=== PATIENT | female | born 1965 | race Caucasian/White ===

== ENCOUNTER 2016-11-22 17:45 | Inpatient (IN) ==
[2016-11-22] MEDS ORDERED: methylPREDNISolone 125 MG/2 ML VIAL IVP ONE (18:27)
[2016-11-22] MEDS ORDERED: Ipratropium/Albuterol Neb 3 ML IH ONE (18:27)
[2016-11-22 18:37] LABS: Basophils % 0.4 %; Eosinophils # 0.3 K/mcL (0.0-0.6); Eosinophils % 2.6 %; Hematocrit 34.4 % (35.3-44.9); Hemoglobin 10.9 g/dL (11.5-15.4); Immature Granulocytes % 0.5 % (0-4); Lymphocytes # 2.9 K/mcL (0.6-4.6); Lymphocytes % 27.1 %; Mean Corpuscular HGB Conc 31.7 g/dL (31.6-35.5); Mean Corpuscular Hemoglobin 29.8 pg (28.0-33.3); Mean Platelet Volume 8.8 fL (9.4-12.4); Monocytes # 0.6 K/mcL (0.0-1.3); Monocytes % 5.4 %; Neutrophils # 6.9 K/mcL (1.6-8.9); Platelet Count 391 K/mcL (140-400); Red Blood Count 3.66 M/mcL (3.82-4.97); Red Cell Distribution Width 15.4 % (11.5-14.5)
[2016-11-22 18:50] LABS: BUN/Creatinine Ratio 10 (6-26); Blood Urea Nitrogen 7 mg/dL (7-20); Calcium 8.2 mg/dL (8.6-10.8); Carbon Dioxide 20 mEq/L (19-29); Chloride 113 mEq/L (98-109); Glucose 93 mg/dL (70-99); Osmolality,Calculated 292 (280-300); Potassium 3.9 mEq/L (3.5-4.5); Sodium 142 mEq/L (136-145); eGFR For African Americans > 60 (> 60); eGFR For Non-African Americans > 60 (> 60)
[2016-11-22] MEDS ORDERED: 0.9 % Sodium Chloride 500 ML IVC ONE (18:54)
--- NOTE | 2016-11-22 18:57 | Emergency Department Note ---
Disposition Clinical Impression: Pleural effusion Dyspnea Qualifiers: Dyspnea type: dyspnea on exertion Qualified Code(s): R06.09 - Other forms of dyspnea Pneumonia Qualifiers: Pneumonia type: due to unspecified organism Laterality: bilateral Lung location : unspecified part of lung Qualified Code(s): J18.9 - Pneumonia, unspecified organism Disposition: Admitted As Inpatient Condition: Good Referrals: Bhanu Moody DO [Primary Care Provider] - Forms: ED Satisfaction Letter SOB HPI - General Chief Complaint: ED Shortness of Breath/Dyspnea Stated Complaint: SOB Time Seen by Provider: 11/22/16 17:59 Source: patient, family Mode of arrival: ambulatory Limitations: no limitations Nursing Notes Reviewed: Yes Vital Signs Reviewed: Yes - History of Present Illness 51-year-old female presents to the ER with a chief complaint of shortness of breath for 1 month duration. Pt Subjective Complaint: shortness of breath Onset (ago): month(s) (1) Context: recent illness (Has had shortness of breath for the last month.) Severity: severe Consistency/Duration: intermittent Improves with: rest Worsens with: lying flat, exertion Known history of: other (Has smoked one pack per day for 20 years. No formal diagnosis of COPD or asthma.) Associated symptoms: Reports: chest pain (Intermittent), cough, wheezing, orthopnea. Denies: fever, sputum production, lower extremity pain, nausea/ vomiting Treatment prior to arrival: bronchodilator Cough present: Yes Cough Description: Involuntary Cough Frequency: Intermittent Sputum production: No Sputum Amount: None - Related Data Home oxygen amount: none Previous Rx's Medication Instructions Recorded Cyclobenzaprine [Flexeril] 10 mg PO TID PRN #15 tablet 09/15/15 Nabumetone [Relafen] 500 mg PO BID 10 Days 09/15/15 Allergies Allergy/AdvReac Type Severity Reaction Status Date / Time acetaminophen [From Vicodin] AdvReac Hives Verified 09/15/15 15:46 codeine AdvReac Hives Verified 09/15/15 15:46 hydrocodone [From Vicodin] AdvReac Hives Verified 09/15/15 15:46 morphine AdvReac Hives Verified 09/15/15 15:46 All systems ED: reviewed and negative except as stated. Constitutional: Denies: fever Cardiovascular: Reports: chest pain (Intermittently), dyspnea on exertion Respiratory: Reports: cough, dyspnea, wheezes Gastrointestinal: Denies: abdominal pain, nausea, vomiting Past Medical History - Past Medical History Attestation: Yes The following information was validated with the patient. Source: patient Medical history: Reports: no medical history Surgical history: Reports: non-contributory Psychiatric history: Reports: anxiety, depression - Social History Smoking Status: Current every day smoker Smokeless Tobacco Status: No Alcohol use: Reports: none, unknown Drug use: Reports: none Physical Exam - General Limitations: no limitations General appearance: alert, anxious - Head Head exam: atraumatic, normocephalic, normal inspection - Eye Eye exam: Present: normal appearance - ENT ENT exam: normal exam - Neck Neck exam: Present: normal inspection - Chest Chest inspection: Present: normal inspection, symmetric chest wall rise - Respiratory Respiratory exam: Present: normal lung sounds bilaterally. Absent: respiratory distress, wheezes, accessory muscle use - Cardiovascular Cardiovascular exam: Present: regular rate, normal rhythm, normal heart sounds - Abdominal Exam Abdominal exam: Present: soft, Non-Tender. Absent: guarding, rigidity - Extremities Exam Extremities exam: Present: normal inspection - Expanded Lower Extremity Exam Hip/Pelvis exam: Present: normal inspection Upper leg exam: Present: normal inspection Knee exam: Present: normal inspection Lower leg exam: Present: normal inspection Ankle exam: Present: normal inspection Foot/toe exam: Present: normal inspection - Neurological Exam Neurological exam: Present: alert - Psychiatric Psychiatric exam: Present: normal affect, normal mood, anxious - Skin Skin exam: Present: warm, dry, intact, normal color Course Course Narrative: 51-year-old female history of hyperlipidemia, bipolar who presents to the ER with a chief complaint of shortness of breath. Patient reports that she has been short of breath for the last 1 month. She reports that she was seen at another facility roughly 2 weeks ago where they did a chest x-ray EKG and labs and she was sent home without any medications. She reports continued shortness of breath since. She reports intermittent chest pain as well but is unable to describe it characteristics. She denies fevers during this. She denies sick contacts. No recent antibiotic use. She has an inhaler at home that her primary care provider prescribed a few months ago. She reports that she has smoked a pack per day for 20 years and quit today. She denies a history of ID, DVT or PE. No other complaints. Plan for this patient is EKG, chest x-ray as well as basic labs including troponin and d-dimer. She does not perc out due to her age. We will give her DuoNeb nebs and Solu-Medrol here as well. - Reevaluation(s) Reevaluation #1: Patient's d-dimer elevated to over 1500. We will order a CTA of the chest. Reevaluation #2: Discussed results of CTA with the patient. Appearance of bilateral pleural effusions with possible superimposed pneumonia. We will give her a dose of Lasix as well as antibiotics and admit her to the hospital for further management. Vital Signs Temperature 97.8 F 11/22/16 17:46 Pulse Rate 68 11/22/16 17:46 Respiratory Rate 18 11/22/16 17:46 Blood Pressure 126/74 11/22/16 17:46 O2 Sat by Pulse Oximetry 96 11/22/16 17:46 Temperature 97.8 F 11/22/16 17:46 Pulse Rate 75 11/22/16 21:06 Respiratory Rate 20 11/22/16 21:06 Blood Pressure 121/76 11/22/16 21:06 O2 Sat by Pulse Oximetry 95 11/22/16 21:06 Oxygen Delivery Oxygen Delivery Nasal Cannula Shortness of Breath/Dyspnea - MDM Narrative Medical decision making narrative: 51-year-old female presents to the ER due to dyspnea for 1 month duration. She is currently on 3 L nasal cannula here with O2 sats around 94%. Her EKG shows diffuse T-wave flattening. Chest x-ray was concerning for interstitial edema. She had an elevated d-dimer so we had a CT of the chest which shows bilateral pleural effusions with the possibility of a superimposed pneumonia. Given her new oxygen requirement and her effusions with possible pneumonia we will give her a dose of Lasix as well as Rocephin and Zithromax for coverage. Blood cultures will be obtained and the patient will be admitted to the hospital for further management. - Lab Data Lab results reviewed: Yes I reviewed the patient's lab results. Result diagrams: 11/22/16 18:22 11/22/16 18:22 Lab Results 11/22/16 11/22/16 11/22/16 Range/Units 18:22 18:22 18:22 WBC 10.7 (4.3-11.1) K/mcL RBC 3.66 L (3.82-4.97) M/mcL Hgb 10.9 L (11.5-15.4) g/dL Hct 34.4 L (35.3-44.9) % MCV 94.0 (83.0-100.0) fL MCH 29.8 (28.0-33.3) pg MCHC 31.7 (31.6-35.5) g/dL RDW 15.4 H (11.5-14.5) % Plt Count 391 (140-400) K/mcL MPV 8.8 L (9.4-12.4) fL Immature Gran % 0.5 (0-4) % Seg Neutrophils % 64.0 % Lymphocytes % 27.1 % Monocytes % 5.4 % Eosinophils % 2.6 % Basophils % 0.4 % Neutrophils # 6.9 (1.6-8.9) K/mcL Lymphocytes # 2.9 (0.6-4.6) K/mcL Monocytes # 0.6 (0.0-1.3) K/mcL Eosinophils # 0.3 (0.0-0.6) K/mcL Basophils # 0.0 (0.0-0.2) K/mcL D-Dimer (0-500) ng/mLFEU Sodium 142 (136-145) mEq/L Potassium 3.9 (3.5-4.5) mEq/L Chloride 113 H (98-109) mEq/L Carbon Dioxide 20 (19-29) mEq/L BUN 7 (7-20) mg/dL Creatinine 0.73 (0.57-1.11) mg/dL Est GFR ( Amer) > 60 (> 60) Est GFR (Non-Af Amer) > 60 (> 60) BUN/Creatinine Ratio 10 (6-26) Glucose 93 (70-99) mg/dL Calculated Osmolality 292 (280-300) Calcium 8.2 L (8.6-10.8) mg/dL Troponin I 0.01 (0-0.03) ng/mL B-Natriuretic Peptide (0-100) pg/mL 11/22/16 11/22/16 Range/Units 18:22 18:22 WBC (4.3-11.1) K/mcL RBC (3.82-4.97) M/mcL Hgb (11.5-15.4) g/dL Hct (35.3-44.9) % MCV (83.0-100.0) fL MCH (28.0-33.3) pg MCHC (31.6-35.5) g/dL RDW (11.5-14.5) % Plt Count (140-400) K/mcL MPV (9.4-12.4) fL Immature Gran % (0-4) % Seg Neutrophils % % Lymphocytes % % Monocytes % % Eosinophils % % Basophils % % Neutrophils # (1.6-8.9) K/mcL Lymphocytes # (0.6-4.6) K/mcL Monocytes # (0.0-1.3) K/mcL Eosinophils # (0.0-0.6) K/mcL Basophils # (0.0-0.2) K/mcL D-Dimer 1577 H (0-500) ng/mLFEU Sodium (136-145) mEq/L Potassium (3.5-4.5) mEq/L Chloride (98-109) mEq/L Carbon Dioxide (19-29) mEq/L BUN (7-20) mg/dL Creatinine (0.57-1.11) mg/dL Est GFR ( Amer) (> 60) Est GFR (Non-Af Amer) (> 60) BUN/Creatinine Ratio (6-26) Glucose (70-99) mg/dL Calculated Osmolality (280-300) Calcium (8.6-10.8) mg/dL Troponin I (0-0.03) ng/mL B-Natriuretic Peptide 1708 H (0-100) pg/mL - Radiology Data Radiology results reviewed: Yes I reviewed the patient's radiology results. Chest X-Ray 11/22/16 18:12 IMPRESSION: Diffuse interstitial changes likely related to interstitial pulmonary edema and CHF. Underlying pneumonia is not excluded. D/ /22/2016 19:02:48 Thierry Bernabe MD / lana Interpreting Provider: Thierry Bernabe MD Chest CTA 11/22/16 18:54 IMPRESSION: 1. No evidence of pulmonary embolic disease. 2. Moderate bilateral pleural effusions with interlobular septal thickening and patchy infiltrates throughout the lungs likely reflecting interstitial pulmonary edema and related to CHF. Superimposed infectious process cannot be excluded. 3. Multiple small mediastinal and right hilar nodes. Recommend follow-up imaging in 3-6 months following treatment of the patient's acute illness. D/ / 11/22/2016 20:14:21 Thierry Bernabe MD / lana Interpreting Provider: Thierry Bernabe MD - EKG Data EKG attestation: Yes I reviewed and interpreted this EKG. EKG results narrative: EKG with sinus rhythm with rate of 68 bpm. Normal axis. ND interval 105 QRS duration 118 QTc 448 there is diffuse T-wave flattening in leads 1, lead 2, aVL , V4 through V6. No ST elevations or depressions. EKG shows normal: Reports: sinus rhythm, axis, intervals, QRS complexes Rate: Reports: normal Rhythm: Reports: NSR [place]/QRS: Reports: normal When compared to previous EKG there are: previous EKG unavailable Interpretation: Reports: nonspecific ST-T wave changes S.B.Garcia - Tegan Situation: Demographics, MOA Background: Presenting Complaint, Relevant PMH, Meds, & Allergies Assessment: Vital Signs, Course and respsone to treatment, Exam Concerns, Patient/Family Expectation, Pertinant Lab Results, Outstanding Labs Recommendation: Barrier(s) to disposition, Recommendation based on pending studies, treatments, or consults S.B.AKristal Report Given to: Dr. Oscar Javed Repor Time: 21:08
[2016-11-22] MEDS ORDERED: Ketorolac 30 MG/ML VIAL IVP ONE (19:54)
[2016-11-22] MEDS ORDERED: Furosemide 40 MG/4 ML VIAL IVP ONE (20:19)
[2016-11-22] MEDS ORDERED: Azithromycin 500 MG in D5% in Water 250 ML IVPB ONE (20:19)
--- NOTE | 2016-11-22 20:22 | Emergency Department Note ---
Disposition Clinical Impression: Dyspnea, Pleural effusion, Pneumonia Disposition: Admitted As Inpatient Condition: Good General Adult HPI - General Chief complaint: ED Shortness of Breath/Dyspnea Stated complaint: SOB Time Seen by Provider: 11/22/16 17:59 Source: patient, family Mode of arrival: ambulatory Limitations: no limitations - History of Present Illness Pain Scale: 0 - Related Data Home Medications Medication Instructions Recorded Confirmed Carisoprodol [Soma] 350 mg PO BID 11/22/16 11/22/16 ClonazePAM [Klonopin] 1 mg PO TID 11/22/16 11/22/16 FLUoxetine HCl [Prozac] 40 mg PO BID 11/22/16 11/22/16 Pravastatin Sodium 10 mg PO DAILY 11/22/16 11/22/16 Quetiapine Fumarate [SEROquel] 300 mg PO BID 11/22/16 11/22/16 Trazodone HCl 100 mg PO HS 11/22/16 11/22/16 Allergies Allergy/AdvReac Type Severity Reaction Status Date / Time acetaminophen [From Vicodin] AdvReac Hives Verified 09/15/15 15:46 codeine AdvReac Hives Verified 09/15/15 15:46 hydrocodone [From Vicodin] AdvReac Hives Verified 09/15/15 15:46 morphine AdvReac Hives Verified 09/15/15 15:46 Constitutional: Denies: fever Cardiovascular: Reports: chest pain (Intermittently), dyspnea on exertion Respiratory: Reports: cough, dyspnea, wheezes Gastrointestinal: Denies: abdominal pain, nausea, vomiting Past Medical History - Past Medical History Medical history: Reports: no medical history Surgical history: Reports: non-contributory Psychiatric history: Reports: anxiety, depression - Social History Smoking Status: Current every day smoker Smokeless Tobacco Status: No Alcohol use: Reports: none, unknown Drug use: Reports: none Physical Exam - General Limitations: no limitations General appearance: alert, anxious Course - Reevaluation(s) Reevaluation #1: I saw the patient with the resident, Dr. Marks. Patient presents with a complaint of shortness of breath. She has had a little bit of cough. She describes orthopnea as well. This is been building up over the past month. On examination she is afebrile. Her vitals are good. She has rales in bilateral lung naidu posteriorly. Chest x-ray questions pulmonary edema versus atypical pneumonia. We did a CT of the chest with contrast to assess for PE and to further delineate the lung issues. On the CT we see bilateral pleural effusions and pulmonary vascular congestion CONSISTENT with congestive heart failure although the radiologist states he cannot rule out an underlying atypical pneumonia. There are no signs of right-sided heart failure on exam. We will treat the patient with some Lasix and we will start her on antibiotics as well. She will need to be admitted because of the severity of her symptoms and her oxygen requirement. Time: 20:22 Vital Signs Temperature 97.8 F 11/22/16 17:46 Pulse Rate 68 11/22/16 17:46 Respiratory Rate 18 11/22/16 17:46 Blood Pressure 126/74 11/22/16 17:46 O2 Sat by Pulse Oximetry 96 11/22/16 17:46 Temperature 97.6 F 11/22/16 22:17 Pulse Rate 72 11/22/16 22:17 Respiratory Rate 19 11/22/16 22:17 Blood Pressure 118/76 11/22/16 22:17 O2 Sat by Pulse Oximetry 94 L 11/22/16 22:17 Oxygen Delivery Oxygen Delivery Nasal Cannula Medical Decision Making - Lab Data Result diagrams: 11/22/16 18:22 11/22/16 18:22 Lab Results 11/22/16 11/22/16 11/22/16 Range/Units 18:22 18:22 18:22 WBC 10.7 (4.3-11.1) K/mcL RBC 3.66 L (3.82-4.97) M/mcL Hgb 10.9 L (11.5-15.4) g/dL Hct 34.4 L (35.3-44.9) % MCV 94.0 (83.0-100.0) fL MCH 29.8 (28.0-33.3) pg MCHC 31.7 (31.6-35.5) g/dL RDW 15.4 H (11.5-14.5) % Plt Count 391 (140-400) K/mcL MPV 8.8 L (9.4-12.4) fL Immature Gran % 0.5 (0-4) % Seg Neutrophils % 64.0 % Lymphocytes % 27.1 % Monocytes % 5.4 % Eosinophils % 2.6 % Basophils % 0.4 % Neutrophils # 6.9 (1.6-8.9) K/mcL Lymphocytes # 2.9 (0.6-4.6) K/mcL Monocytes # 0.6 (0.0-1.3) K/mcL Eosinophils # 0.3 (0.0-0.6) K/mcL Basophils # 0.0 (0.0-0.2) K/mcL D-Dimer (0-500) ng/mLFEU Sodium 142 (136-145) mEq/L Potassium 3.9 (3.5-4.5) mEq/L Chloride 113 H (98-109) mEq/L Carbon Dioxide 20 (19-29) mEq/L BUN 7 (7-20) mg/dL Creatinine 0.73 (0.57-1.11) mg/dL Est GFR ( Amer) > 60 (> 60) Est GFR (Non-Af Amer) > 60 (> 60) BUN/Creatinine Ratio 10 (6-26) Glucose 93 (70-99) mg/dL Calculated Osmolality 292 (280-300) Calcium 8.2 L (8.6-10.8) mg/dL Troponin I 0.01 (0-0.03) ng/mL B-Natriuretic Peptide (0-100) pg/mL 11/22/16 11/22/16 Range/Units 18:22 18:22 WBC (4.3-11.1) K/mcL RBC (3.82-4.97) M/mcL Hgb (11.5-15.4) g/dL Hct (35.3-44.9) % MCV (83.0-100.0) fL MCH (28.0-33.3) pg MCHC (31.6-35.5) g/dL RDW (11.5-14.5) % Plt Count (140-400) K/mcL MPV (9.4-12.4) fL Immature Gran % (0-4) % Seg Neutrophils % % Lymphocytes % % Monocytes % % Eosinophils % % Basophils % % Neutrophils # (1.6-8.9) K/mcL Lymphocytes # (0.6-4.6) K/mcL Monocytes # (0.0-1.3) K/mcL Eosinophils # (0.0-0.6) K/mcL Basophils # (0.0-0.2) K/mcL D-Dimer 1577 H (0-500) ng/mLFEU Sodium (136-145) mEq/L Potassium (3.5-4.5) mEq/L Chloride (98-109) mEq/L Carbon Dioxide (19-29) mEq/L BUN (7-20) mg/dL Creatinine (0.57-1.11) mg/dL Est GFR ( Amer) (> 60) Est GFR (Non-Af Amer) (> 60) BUN/Creatinine Ratio (6-26) Glucose (70-99) mg/dL Calculated Osmolality (280-300) Calcium (8.6-10.8) mg/dL Troponin I (0-0.03) ng/mL B-Natriuretic Peptide 1708 H (0-100) pg/mL Attestation Statement - Attestation Attestation: I, Dr. Guzmán, examined this patient [id number] and my medical decision- making was reviewed with Dr. Marks, Resident Physician. I agree with the documented findings, disposition and treatment plan as described except to the extent set forth below. Please see my progress notes for details.
[2016-11-22] MEDS ORDERED: Naloxone 0.4 MG/ML INJ IVP PRN (23:08)
[2016-11-22] MEDS ORDERED: Albuterol 2.5 MG/3 ML NEBULIZER IH PRN (23:34)
[2016-11-22] MEDS ORDERED: Ibuprofen 400 MG TABLET PO PRN (23:40)
--- NOTE | 2016-11-22 23:40 | Internal Med History&Physical ---
<Sade Deleon - Last Filed: 11/22/16 23:57> Date of Encounter: 11/22/16 Time of Encounter: 22:00 Assessment and Plan (1) Acute respiratory failure with hypoxia Current visit: Yes Status: Acute 1 patient presented with SPO2 91% respiratory distress. She was given supplemental oxygen doing that Lasix which did improve her respiratory status. We will continue with oxygen titrate to maintain SPO2. Greater than 92% 2 suspect this is related to CHF/pleural effusion we will continue with Lasix, obtain cardiac echo-consult cardiology (2) CHF (congestive heart failure) Current visit: Yes Status: Acute 1 she has no past history of CHF/heart disease. will obtain cardiac echo 2. Consult Cardiology 3 continue with IV Lasix 4 monitor intake and output 5 daily weight 6 low sodium diet 7trend troponin 8 continuos cardiac monitoring Qualifiers: Congestive heart failure type: unspecified congestive heart failure type Congestive heart failure chronicity: acute Qualified Code(s): I50.9 - Heart failure, unspecified (3) Bipolar 1 disorder Current visit: Yes Status: Acute 1 she has history of bipolar disorder we will continue with home medications (4) Tobacco abuse Current visit: Yes Status: Acute 1 encouraged the patient to stop smoking nicotine patch as needed (5) DVT prophylaxis Current visit: Yes Status: Acute 1 Lovenox (6) Pleural effusion Current visit: Yes Status: Acute Internal Medicine - H&P: HPI Chief complaint: SOB Admitted From: Emergency Dept Plans for Post Hospital Care: Home History of present illness: Ms. Cevallos is a 51 year old female with past medical history of bipolar disorder tobacco abuse. According to the patient she has been experiencing shortness of breath on exertion for approximately a month however over the past few days her shortness of breath has worsened. She denies any fevers chills nausea vomiting diarrhea abdominal pain. She denies any sick contacts or recent travel. She did have all of her teeth pulled on 11/14/2016 due to gum disease. Today the patient did awake short of breath with some chest pressure during inspiration. She presented to the ER for evaluation. According to ER records patient did present hypoxic with SPO2 of 91% on room air. Patient was placed on oxygen, O2 saturation did improve lab work revealed BNP of 1708 d-dimer 1577. Chest x-ray was consistent with pulmonary congestion versus atypical pneumonia. CTA chest was completed to rule out PE which revealed bilateral pleural effusion pulmonary vascular congestion consistent with congestive heart failure however again cannot rule out underlying atypical pneumonia. EKG did show some ST depression. 4 cultures were obtained patient was given IV Zithromax and Rocephin as well as Lasix. She is admitted for further workup and evaluation. At present time patient does not appear to be in any respiratory distress and denies any chest pain. She is alert and follows simple commands however during conversation patient begins to cry/shake see that she is nervous and requesting her night medication. Presently her vital signs are stable I reviewed the case with who agrees with plan Past Med Surg Social Fam HX - Past Medical History Medical history: no medical history Psychiatric history: anxiety, depression - Past Surgical History Surgical History: non-contributory - Social History Smoking Status: Current every day smoker Smokeless Tobacco Status: No Alcohol use: none, unknown Drug use: none - Family History Mother Living Status: Still Living Hx Family Cardiac Disorders: No Hx Family Respiratory Disorders: No Hx Family Cancer: No Hx Family GI Disorders: No Hx Family Genitourinary Disorders: No Hx Family Endocrine Disorder: No Hx Family Musculoskeletal Disorders: No Hx Family Neuromuscular Disorders: No Hx Family Neurologic Disorders: No Hx Family HEENT Disorders: No Hx Family Autoimmune Disorders: No Hx Family Reproductive Disorders: No Hx Family Psychosocial Disorders: Yes (anxiety, panic attacks) Hx Family Medical Disorders: No Father Living Status: Hx Family Cardiac Disorders: Yes Internal Medicine - H&P: Meds Carisoprodol [Soma] 350 mg PO BID 11/22/16 [History] ClonazePAM [Klonopin] 1 mg PO TID 11/22/16 [History] FLUoxetine HCl [Prozac] 40 mg PO BID 11/22/16 [History] Pravastatin Sodium 10 mg PO DAILY 11/22/16 [History] Quetiapine Fumarate [SEROquel] 300 mg PO BID 11/22/16 [History] Trazodone HCl 100 mg PO HS 11/22/16 [History] Allergies acetaminophen [From Vicodin] Adverse Reaction (Verified 09/15/15 15:46) Hives codeine Adverse Reaction (Verified 09/15/15 15:46) Hives hydrocodone [From Vicodin] Adverse Reaction (Verified 09/15/15 15:46) Hives morphine Adverse Reaction (Verified 09/15/15 15:46) Hives All Systems PM: A 10-system review of systems was performed and is negative for pertinent findings except as documented above in the HPI. - Constitutional Constitutional: no chills, no fever(s), no night sweats - EENT Eyes: no change in vision, no discharge, no pain, no photophobia Nose, mouth and throat: mouth pain - Cardiovascular Cardiovascular ROS IM: chest pain, dyspnea on exertion - Respiratory Respiratory: dyspnea on exertion, pain on inspiration - Gastrointestinal Gastrointestinal: no abdominal pain, no diarrhea, no hematemesis, no hematochezia, no melena, no nausea, no vomiting - Genitourinary Genitourinary: no change in urinary stream, no dysuria, no flank pain, no hematuria - Musculoskeletal Musculoskeletal ROS IM: no numbness, no tingling - Neurological Neurological ROS: no confusion, no convulsions, no focal weakness, no numbness, no tingling, no tremor(s) - Constitutional Vitals: Temp Pulse Resp BP Pulse Ox 97.6 F 72 19 118/76 94 L 11/22/16 22:17 11/22/16 22:17 11/22/16 22:17 11/22/16 22:17 11/22/16 22:17 General appearance: Present: answers questions appropriately Exam: Appears emotionally distraught - Head Head exam: Present: atraumatic, normocephalic - Eye Eye exam: Present: PERRL, conjuntiva pink, sclera anicteric Pupils: Present: PERRL - ENT ENT exam: Present: mucous membranes moist Additional comments: edentulous - Neck Neck exam general surgery: Present: supple, trachea midline. Absent: lymphadenopathy - Respiratory Respiratory exam: Present: rales. Absent: accessory muscle use, rhonchi, wheezes - Cardiovascular Cardiovascular exam: Present: RRR, +S1, +S2. Absent: diastolic murmur, gallop, rubs, systolic murmur - GI/Abdominal GI/Abdominal exam: Present: normal bowel sounds, soft, no peritoneal signs. Absent: distended, tenderness - Extremities Exam Extremities exam: Present: warm, radial pulses palpable and symetrical. Absent : calf tenderness, cyanotic, pedal edema - Neurological Exam Neurological exam: Present: CN II-XII intact, oriented X3, no focal deficits. Absent: pronater drift, facial droop, speech deficit - Skin Skin exam: Present: dry, intact Internal Med - H&P Results - Labs CBC & Chem 7: 11/22/16 18:22 11/22/16 18:22 - EKG Data EKG shows normal: sinus rhythm - EKG Data EKG comments: 11/22/16 23:54 I reviewed the EKG with some ST depression in lateral leads 11/22/16 23:54 - Diagnostic Studies Chest x-ray Additional comments: Per radiology read diffuse interstitial changes related to interstitial pulmonary edema and CHF or pneumonia cannot be excluded CT scan - chest Additional comments: Per radiology read no evidence of pulmonary emboli disease. Moderate bilateral pleural effusions with intralobular septal thickening and patchy infiltrates once likely reflecting interstitial pulmonary edema and related to CHF. Superimposed infectious process cannot be excluded. Multiple small mediastinal and right hilar lymph nodes. Recommend follow-up imaging in 3-6 months following treatment the patient's acute illness. <Cesar Moore - Last Filed: 11/23/16 03:19> Date of Encounter: 11/22/16 Internal Medicine - H&P: HPI History of present illness: Ms. Cevallos is a 51 year old female All Systems PM: A 10-system review of systems was performed and is negative for pertinent findings except as documented above in the HPI. - Constitutional Vitals: Temp Pulse Resp BP Pulse Ox 97.6 F 72 19 118/76 94 L 11/22/16 22:17 11/22/16 22:17 11/22/16 22:17 11/22/16 22:17 11/22/16 22:17 Internal Med - H&P Results - Labs CBC & Chem 7: 11/23/16 00:28 11/22/16 18:22 Labs: Short CBC 11/23/16 Range/Units 00:28 WBC 9.1 (4.3-11.1) K/mcL Hgb 10.2 L (11.5-15.4) g/dL Hct 32.7 L (35.3-44.9) % Plt Count 415 H (140-400) K/mcL Neutrophils # 8.3 (1.6-8.9) K/mcL Cardiac Enzymes 11/23/16 Range/Units 00:28 Troponin I 0.01 (0-0.03) ng/mL - Attending Attestation I examined this patient and my medical decision-making was reviewed with the SERVICING MANAGER/PA/Advanced Practice Nurse/Resident Physician. I agree with the documented findings, disposition and treatment plan as described except to the extent set forth below. 51-year-old female with the history of bipolar disorder presents with one-month history of progressive shortness of breath, orthopnea and paroxysmal nocturnal dyspnea. Short of breath got worse in the last few days. Denies significant expectoration, chest pain, fever, chills. Recent h/o tooth extraction. Denies h/ o heart murmur or rheumatic fever as child. O/E: Anxious. Lungs: few basal crackles. EKG: sinus rhythm. CXR / CTA chest: No pulmonary embolism. Moderate bilateral pleural effusions with interlobular septal thickening and patchy infiltrates likely reflecting interstitial pulmonary edema and related to CHF. Superimposed infectious process cannot be excluded. BNP: 1708; D-Dimer: 1577. A/P: - New onset CHF: Echocardiogram to assess LV function and valvular lesions. IV Lasix. I/O; daily weight; low sodium diet; cardiology consultation for w/u. Clinically unlikely pneumonia will hold antibiotics.
[2016-11-23] MEDS: Nicotine 14 MG PATCH.TD24 TD SCH ×2 (00:05→08:17)
[2016-11-23] MEDS: FLUoxetine 20 MG CAPSULE PO SCH ×3 (00:05→20:20)
[2016-11-23] MEDS: traZODone 50 MG TABLET PO SCH ×2 (00:06→20:20)
[2016-11-23] MEDS: clonazePAM 1 MG TABLET PO SCH ×4 (00:06→20:20)
[2016-11-23 01:02] LABS: Hematocrit 32.7 % (35.3-44.9); Hemoglobin 10.2 g/dL (11.5-15.4); Immature Platelets 1.3 % (1.1-6.1); Mean Corpuscular HGB Conc 31.2 g/dL (31.6-35.5); Mean Corpuscular Hemoglobin 29.6 pg (28.0-33.3); Mean Corpuscular Volume 94.8 fL (83.0-100.0); Mean Platelet Volume 8.8 fL (9.4-12.4); Platelet Count 415 K/mcL (140-400); Red Blood Count 3.45 M/mcL (3.82-4.97); Red Cell Distribution Width 15.4 % (11.5-14.5)
[2016-11-23 01:36] LABS: Lymphocytes # 0.7 K/mcL (0.6-4.6); Monocytes # 0.1 K/mcL (0.0-1.3); Neutrophils # 8.3 K/mcL (1.6-8.9)
[2016-11-23 01:37] LABS: Polychromasia 1+ (Not Present)
[2016-11-23 01:38] LABS: Reactive Lymphocytes Present (Not Present)
[2016-11-23 03:36] LABS: BUN/Creatinine Ratio 8 (6-26); Blood Urea Nitrogen 6 mg/dL (7-20); Carbon Dioxide 18 mEq/L (19-29); Chloride 109 mEq/L (98-109); Glucose 277 mg/dL (70-99); Magnesium 1.5 mg/dL (1.6-2.6); Osmolality,Calculated 296 (280-300); Potassium 3.6 mEq/L (3.5-4.5); Sodium 139 mEq/L (136-145); eGFR For African Americans > 60 (> 60); eGFR For Non-African Americans > 60 (> 60)
[2016-11-23] MEDS: *HR* Enoxaparin 40 MG/0.4 ML SYRINGE SQ SCH (06:15)
[2016-11-23] MEDS ORDERED: Magnesium Sulfate 1 GM in D5% in Water 100 ML IVPB ONE (07:25)
--- NOTE | 2016-11-23 08:42 | Cardiology Consult Note ---
<Sundeep Chavez - Last Filed: 11/23/16 11:08> Date of Encounter: 11/23/16 Time of Encounter: 08:41 Assessment and Plan (1) Acute respiratory failure with hypoxia Current Visit: Yes Status: Acute Pleural effusions noted on both CXR and CTA. SpO2 upon ED arrival 91%, in room patient O2 was 84% on no oxygen. No previous home O2 use. ECHO demonstrated mitral regurg KATHERINE tomorrow NPO midnight tonight Continue lasix and respiratory support Repeat troponin at 1200 for episode of chest pain EKG demonstrated possible Delta wave without signs of ischemia. (2) CHF (congestive heart failure) Current Visit: Yes Status: Acute Qualifiers: Congestive heart failure type: unspecified congestive heart failure type Congestive heart failure chronicity: acute Qualified Code(s): I50.9 - Heart failure, unspecified (3) Pleural effusion Current Visit: Yes Status: Acute Discussion w patient/family: The assessment and plan as outlined above was discussed with the patient and/or family members who expressed understanding and agreement. All questions were answered. Thank you for involving us in the care of your patient. Please call with any questions. History of Present Illness Consult date: 11/23/16 Requesting physician: Cesar Moore Consult reason: New onset CHF Chief complaint: Dyspnea History of present illness: Ms. Cevallos is a 51 year old female smoker with HLD with no previous diagnosed CAD , arrived to [facility] ED complaining of dyspnea that began roughly 1 month ago with an acute worsening over the last 2 days. She states that any movement will cause her to become short of breath. She denies any previous chest pain but states around 0830 she began complaining of retrosternal chest pressure. The patient's father first had an AK at age 47. At age 56 he went for a CABG and passed due to complications. She also felt very short of breath at that time after taking her O2 off. Her O2 saturation was 84%. She was placed backed on O2. Past Med Surg Social Fam HX - Past Medical History Attestation: Yes The following information was validated with the patient. Source: patient Medical history: no medical history Psychiatric history: anxiety, depression - Past Surgical History Surgical History: non-contributory - Social History Smoking Status: Current every day smoker Smokeless Tobacco Status: No Alcohol use: none, unknown Drug use: none - Family History Mother Living Status: Still Living Hx Family Cardiac Disorders: No Hx Family Respiratory Disorders: No Hx Family Cancer: No Hx Family GI Disorders: No Hx Family Genitourinary Disorders: No Hx Family Endocrine Disorder: No Hx Family Musculoskeletal Disorders: No Hx Family Neuromuscular Disorders: No Hx Family Neurologic Disorders: No Hx Family HEENT Disorders: No Hx Family Autoimmune Disorders: No Hx Family Reproductive Disorders: No Hx Family Psychosocial Disorders: Yes (anxiety, panic attacks) Hx Family Medical Disorders: No Father Living Status: Hx Family Cardiac Disorders: Yes (AK age 47, CABG age 56, passed due to complications of CABG) Medications and Allergies Carisoprodol [Soma] 350 mg PO BID 11/22/16 [History] ClonazePAM [Klonopin] 1 mg PO TID PRN 11/22/16 [History] FLUoxetine HCl [Prozac] 40 mg PO BID 11/22/16 [History] Pravastatin Sodium 20 mg PO DAILY 11/22/16 [History] Trazodone HCl 100 mg PO BID 11/22/16 [History] Acetaminophen/Butalbital/Caffe [Fioricet] 1 tab PO Q6HR PRN 11/23/16 [History] Albuterol Sulfate [Ventolin Hfa] 2 puff IH Q4H PRN 11/23/16 [History] Quetiapine Fumarate [Seroquel Xr] 300 mg PO DAILY 11/23/16 [History] Allergies acetaminophen [From Vicodin] Allergy (Verified 11/23/16 09:15) Hives codeine Allergy (Verified 11/23/16 09:15) Hives hydrocodone [From Vicodin] Allergy (Verified 11/23/16 09:15) Hives morphine Allergy (Verified 11/23/16 09:15) Hives All Systems Review: A 10-system review of systems was performed and is negative for pertinent findings except as documented above in the HPI. - Constitutional Constitutional: fatigue, weakness - Cardiovascular Cardiovascular: chest pain at rest, dyspnea at rest, dyspnea on exertion - Respiratory Respiratory: cough, dyspnea, wheezing Physical Examination Vital Signs, Last 4 Hours Temp Pulse Resp BP Pulse Ox 11/23/16 08:35 90 L 11/23/16 06:40 97.4 F L 54 16 108/71 91 L 11/23/16 04:42 97.4 F L 57 18 107/67 91 L General: Other (Mild respiratory distress) HEENT: Atraumatic, Normocephaly, Mucus Membranes Moist Neck: No JVD Cardiac: Reg Rate and Rhythm, Normal S1 and S2, No Murmur Lungs: Other (Diffuse wheezing and rhonchi, poor air movement) Neuro: Alert and responsive, No focal deficits noted Abdomen: Soft, Non-Tender Skin: No rashes noted on visualized skin Musculoskeletal: No Chest Wall Tenderness Extremities: No Clubbing, No Cyanosis, No Edema Results 11/23/16 00:28 11/23/16 00:28 Lab Results 11/23/16 11/23/16 11/23/16 00:28 00:28 00:28 WBC 9.1 Hgb 10.2 L Hct 32.7 L Plt Count 415 H Sodium 139 Potassium 3.6 Chloride 109 Carbon Dioxide 18 L BUN 6 L Creatinine 0.79 Glucose 277 H Calcium 8.0 L Magnesium 1.5 L Troponin I 0.01 11/23/16 05:31 WBC Hgb Hct Plt Count Sodium Potassium Chloride Carbon Dioxide BUN Creatinine Glucose Calcium Magnesium Troponin I 0.01 - Imaging and Cardiology Chest Xray: report reviewed Echo: pending - EKG Interpretation EKG results cardiology: personally reviewed, sinus rhythm Consult Discharge Plan - Plan Referrals: Bhanu Moody DO [Primary Care Provider] - - Attending Attestation I examined this patient and my medical decision-making was reviewed with the Resident Physician. I agree with the documented findings, disposition and treatment plan as described except to the extent set forth below. <Amol Wylie G - Last Filed: 11/23/16 12:17> Date of Encounter: 11/23/16 Assessment and Plan Discussion w patient/family: The assessment and plan as outlined above was discussed with the patient and/or family members who expressed understanding and agreement. All questions were answered. Thank you for involving us in the care of your patient. Please call with any questions. History of Present Illness History of present illness: Ms. Cevallos is a 51 year old female All Systems Review: A 10-system review of systems was performed and is negative for pertinent findings except as documented above in the HPI. Physical Examination Vital Signs, Last 4 Hours Temp Pulse Resp BP Pulse Ox 11/23/16 11:00 97.6 F 66 16 130/87 94 L 11/23/16 08:35 90 L Results 11/23/16 00:28 11/23/16 00:28 Lab Results 11/23/16 11/23/16 11/23/16 00:28 00:28 00:28 WBC 9.1 Hgb 10.2 L Hct 32.7 L Plt Count 415 H Sodium 139 Potassium 3.6 Chloride 109 Carbon Dioxide 18 L BUN 6 L Creatinine 0.79 Glucose 277 H Calcium 8.0 L Magnesium 1.5 L Troponin I 0.01 11/23/16 05:31 WBC Hgb Hct Plt Count Sodium Potassium Chloride Carbon Dioxide BUN Creatinine Glucose Calcium Magnesium Troponin I 0.01 - Attending Attestation pt has symptoms of CHF , with PND, orthopnea, abdominal swelling VSS JVD: 9-20 cm Chest Clear CVS: RRR HSM at apex ? s3 Abdo: ? ascites ECHO reviewed by me shows severe MR with a central jet, LAE Grade III Diastolic Dysfunction severe TR mod PI no signs of ischemia plan; IV lasix KATHERINE in am to look at valve more closely possible R and L heart cath may need MV repair d/w pt and family Thanks
[2016-11-23] MEDS ORDERED: Furosemide 40 MG/4 ML VIAL IVP SCH (09:00)
--- NOTE | 2016-11-23 15:02 | ECHO - Doppler Report ---
Echocardiogram Name: Clemencia Cevallos Date of Study: 11/23/2016 Date: 1965 Ht: 67.0 in Medical Record#: [id number] Age: 51 Wt: 150.0 lb Gender: Female BSA: 1.79 Order #: [id number] Location: [facility] Room #: 2A11 Reading Physician: Madisyn Trammell DO [place] Custodian: Abraham Garland RN Ordering Physician: Sade Deleon CNP Primary Physician: Bhanu Moody DO Indications: Shortness of breath Impressions: LVEF 60%. Normal LV chamber size, wall thickness and function. Significantly elevated diastolic filling pressures. Mildly dilated RV with normal function. Mild aortic regurgitation. Severe mitral regurgitation with possible malcoaptation of the leaflets (see Findings below). Moderate-severe tricuspid regurgitation. Mild-moderate pulmonic regurgitation. Estimated RVSP was 73 mmHg. Severe pulmonary hypertension. The IVC is dilated. Recommend KATHERINE for further evaluation of the mitral valve. Left Ventricular Wall Motion: Rest Echo Findings All wall segments showed normal motion. Findings: Study Quality * Technically adequate exam. ECG Findings * Normal sinus rhythm. Left Ventricle * LVEF 60%. * Normal LV chamber size, wall thickness and function. * Significantly elevated diastolic filling pressures. Aortic Valve * Trileaflet aortic valve. * Normal aortic valve structure. * No aortic stenosis. * Mild aortic regurgitation. Mitral Valve * No mitral stenosis. * Severe mitral regurgitation. * Rheumatic appearing AMVL. * In the PSAX view, there appears to be malcoaptation of the lateral aspects of the leaflets (A1/P1, A3/P3). * Normal subvalvular apparatus. Tricuspid Valve * Normal tricuspid valve structure. * Moderate-severe tricuspid regurgitation. * Estimated RA pressure is 15 mmHg. * Estimated RVSP is 73 mmHg. * Severe pulmonary hypertension. Pulmonic Valve * Pulmonic valve is not well visualized. * No pulmonic stenosis. * Mild-moderate pulmonic regurgitation. Pulmonary Artery * Pulmonary artery not well visualized. Right Ventricle * Mildly dilated RV with normal function. Left Atrium * Severely dilated left atrium. Right Atrium * Moderately dilated right atrium. Interatrial Septum * Interatrial septum not well evaluated. IVC * The IVC is dilated. * < 50% respiratory change. Pericardium * There is no pericardial effusion present. Aorta * Normally sized aortic root. History Hypercholesteremia History of Smoking Years 25 Packs 1 Family History of CAD Measurements: BP: 108/ 71 2D Normal Values IVSd: .80 cm 0.6 - 1.0 cm LVIDd: 5.00 cm 3.7 - 5.6 cm LVPWd: .80 cm 0.6 - 1.1 cm LVIDs: 3.30 cm 1.5 - 3.6 cm LA: 5.00 cm 2.0 - 4.0cm %FS: 34.00 cm >25 % LVOT Diam: 1.80 cm LA volume: 102 Mitral Valve Peak E:1.42 m/sec Peak A:.52 m/sec E/A Ratio:2.7 Peak E' Lat Sergey:8.68 cm/s Peak E' Med Sergey:5.07 cm/s E/E' Lat Ratio:16.7 E/E' Med Ratio:28.6 Aortic Valve AI pressure Half-time: 1170.00 msec Tricuspid Valve TV Regurg Peak Grad: 57.00mmHg TV Regurg Peak Sergey: 3.79m/sec Updated by Madisyn Trammell on 11/23/2016 2:49:21 PM electronically signed on 11/23/2016 2:58:06 PM with status of Final Wall Motion [place]: 1=Normal, 2=Hypokinesis, 3=Akinesis, 4=Dyskinesis, 5=Aneurysmal, 6=Hyperkinetic, X=Not Visualized (Blank)=Missing
[2016-11-23] MEDS: Ibuprofen 400 MG TABLET PO PRN (16:54)
--- NOTE | 2016-11-23 17:43 | Internal Med Progress Note ---
Date of Encounter: 11/23/16 Time of Encounter: 16:00 - Assessment and plan (1) Acute respiratory failure with hypoxia Current Visit: Yes Status: Acute Assessment and plan: Secondary to acute diastolic heart failure, severe MR, severe pulmonary hypertension. CTA of the chest revealed no PE, moderate bilateral pleural effusions with interlobular septal thickening and patchy infiltrates throughout the lungs suspicious for pulmonary edema. Multiple small mediastinal and right hilar nodes. Echocardiogram showed LVEF 60%, significantly elevated diastolic filling pressures, severe mitral regurgitation, moderate to severe tricuspid regurgitation, severe pulmonary hypertension. Cardiology is following. Continue oxygen supplementation 2L, diuresis with IV Lasix twice a day, fluid restriction, low-salt diet, daily weights, strict in and out's. (2) Acute diastolic (congestive) heart failure Current Visit: Yes Status: Acute Assessment and plan: Plan as above. (3) Severe mitral regurgitation Current Visit: Yes Status: Acute Assessment and plan: Plan as above. (4) Moderate tricuspid regurgitation Current Visit: Yes Status: Acute Assessment and plan: Plan as above. (5) Moderate to severe pulmonary hypertension Current Visit: Yes Status: Acute Assessment and plan: Plan as above. (6) Pleural effusion Current Visit: Yes Status: Acute Assessment and plan: Bilateral moderate pleural effusions secondary to diastolic heart failure and severe mitral regurgitation. Plan As above. (7) Bipolar 1 disorder Current Visit: Yes Status: Acute Assessment and plan: Resume home meds. (8) Hypomagnesemia Current Visit: Yes Status: Acute Assessment and plan: Replete. (9) Tobacco abuse Current Visit: Yes Status: Acute Assessment and plan: Nicotine patch. Counseled to quit smoking - Subjective Interval history: Patient is still feels short of breath on exertion - Constitutional Vitals: Temp Pulse Resp BP Pulse Ox 97.6 F 69 18 117/72 92 L 11/23/16 15:00 11/23/16 15:00 11/23/16 15:00 11/23/16 15:00 11/23/16 15:00 General appearance: Present: cooperative, A&O X 3, pleasant, no acute distress, answers questions appropriately - ENT ENT exam: Present: mucous membranes moist - Respiratory Respiratory exam: Present: decreased breath sounds (At the lower lung naidu.), rales (At right lung base.) - Cardiovascular Cardiovascular exam: Present: RRR - GI/Abdominal GI/Abdominal exam: Present: normal bowel sounds, soft. Absent: distended, tenderness - Extremities Exam Extremities exam: Present: pedal edema - Back Exam Back exam: Absent: CVA tenderness (L), CVA tenderness (R) - Neurological Exam Neurological exam: Present: alert, oriented X3. Absent: facial droop, speech deficit - Skin Skin exam: Present: intact Internal Medicine: Result - Labs CBC & Chem 7: 11/23/16 00:28 11/23/16 00:28 Labs: Short CBC 11/23/16 Range/Units 00:28 WBC 9.1 (4.3-11.1) K/mcL Hgb 10.2 L (11.5-15.4) g/dL Hct 32.7 L (35.3-44.9) % Plt Count 415 H (140-400) K/mcL Neutrophils # 8.3 (1.6-8.9) K/mcL BMP 11/23/16 00:28 Sodium 139 Potassium 3.6 Chloride 109 Carbon Dioxide 18 L BUN 6 L Creatinine 0.79 Glucose 277 H Calcium 8.0 L Cardiac Enzymes 11/23/16 11/23/16 11/23/16 Range/Units 00:28 05:31 12:12 Troponin I 0.01 0.01 0.01 (0-0.03) ng/mL - ABG Interpretation ABG results: PT/INR, D-dimer D-Dimer 1577 ng/mLFEU (0-500) H 11/22/16 18:22 Consult Discharge Plan - Plan Referrals: Bhanu Moody DO [Primary Care Provider] -
[2016-11-23] MEDS: Furosemide 40 MG/4 ML VIAL IVP SCH (20:19)
[2016-11-24 07:01] LABS: BUN/Creatinine Ratio 21 (6-26); Blood Urea Nitrogen 16 mg/dL (7-20); Calcium 8.4 mg/dL (8.6-10.8); Carbon Dioxide 25 mEq/L (19-29); Chloride 106 mEq/L (98-109); Glucose 118 mg/dL (70-99); Magnesium 1.9 mg/dL (1.6-2.6); Osmolality,Calculated 294 (280-300); Sodium 141 mEq/L (136-145); eGFR For African Americans > 60 (> 60); eGFR For Non-African Americans > 60 (> 60)
[2016-11-24] MEDS: Nicotine 14 MG PATCH.TD24 TD SCH (08:10)
[2016-11-24] MEDS: *HR* Enoxaparin 40 MG/0.4 ML SYRINGE SQ SCH (08:11)
[2016-11-24] MEDS: FLUoxetine 20 MG CAPSULE PO SCH ×2 (08:12→22:07)
[2016-11-24] MEDS: clonazePAM 1 MG TABLET PO SCH ×3 (08:13→22:07)
[2016-11-24 10:20] LABS: INR 1.2; Prothrombin Time 13.2 Seconds (9.4-12.1)
--- NOTE | 2016-11-24 11:10 | Internal Med Progress Note ---
Date of Encounter: 11/24/16 Time of Encounter: 10:30 - Assessment and plan (1) Acute respiratory failure with hypoxia Current Visit: Yes Status: Acute Assessment and plan: Secondary to acute diastolic heart failure, severe MR, severe pulmonary hypertension. CTA of the chest revealed no PE, moderate bilateral pleural effusions with interlobular septal thickening and patchy infiltrates throughout the lungs suspicious for pulmonary edema. Multiple small mediastinal and right hilar nodes. Echocardiogram showed LVEF 60%, significantly elevated diastolic filling pressures, severe mitral regurgitation, moderate to severe tricuspid regurgitation, severe pulmonary hypertension. Cardiology is following: plan for [facility] today. 6 min walk. Continue oxygen supplementation 2L, diuresis with IV Lasix twice a day, fluid restriction, low- salt diet, daily weights, strict in and out's. f/u ct chest as outpatient. (2) Acute diastolic (congestive) heart failure Current Visit: Yes Status: Acute Assessment and plan: Plan as above. (3) Severe mitral regurgitation Current Visit: Yes Status: Acute Assessment and plan: Plan as above. (4) Moderate tricuspid regurgitation Current Visit: Yes Status: Acute Assessment and plan: Plan as above. (5) Moderate to severe pulmonary hypertension Current Visit: Yes Status: Acute Assessment and plan: Plan as above. (6) Pleural effusion Current Visit: Yes Status: Acute Assessment and plan: Bilateral moderate pleural effusions secondary to diastolic heart failure and severe mitral regurgitation. Plan As above. (7) Bipolar 1 disorder Current Visit: Yes Status: Acute Assessment and plan: Resume home meds. (8) Hypomagnesemia Current Visit: Yes Status: Acute Assessment and plan: corrected (9) Tobacco abuse Current Visit: Yes Status: Acute Assessment and plan: Nicotine patch. Counseled to quit smoking - Subjective Interval history: Patient feels better this morning, her shortness of breath is better. - Constitutional Vitals: Temp Pulse Resp BP Pulse Ox 97.5 F L 66 16 108/75 94 L 11/24/16 06:37 11/24/16 06:37 11/24/16 06:37 11/24/16 06:37 11/24/16 08:48 General appearance: Present: cooperative, A&O X 3, pleasant, no acute distress, answers questions appropriately - Eye Eye exam: Present: PERRL, sclera anicteric - ENT ENT exam: Present: mucous membranes moist - Neck Neck exam general surgery: Present: supple, trachea midline. Absent: lymphadenopathy - Respiratory Respiratory exam: Present: rales (at right lung base) - Cardiovascular Cardiovascular exam: Present: RRR - GI/Abdominal GI/Abdominal exam: Present: normal bowel sounds, soft. Absent: distended, tenderness - Extremities Exam Extremities exam: Absent: pedal edema - Back Exam Back exam: Absent: CVA tenderness (L), CVA tenderness (R) - Neurological Exam Neurological exam: Present: alert - Skin Skin exam: Present: intact. Absent: rash Internal Medicine: Result - Labs CBC & Chem 7: 11/23/16 00:28 11/24/16 03:40 Labs: BMP 11/24/16 03:40 Sodium 141 Potassium 4.0 Chloride 106 Carbon Dioxide 25 BUN 16 D Creatinine 0.75 Glucose 118 H Calcium 8.4 L Cardiac Enzymes 11/23/16 Range/Units 12:12 Troponin I 0.01 (0-0.03) ng/mL - ABG Interpretation ABG results: PT/INR, D-dimer PT 13.2 Seconds (9.4-12.1) H 11/24/16 10:07 D-Dimer 1577 ng/mLFEU (0-500) H 11/22/16 18:22 Consult Discharge Plan - Plan Referrals: Bhanu Moody DO [Primary Care Provider] - 12/05/16 3:30 pm (Please follow up as schedule..)
--- NOTE | 2016-11-24 11:37 | Pre-Sedation Evaluation ---
Pre-sedation evaluation - Pre-sedation checklist Date of procedure: 11/24/16 Procedure: [facility] Recent Vitals: Last Vital Signs Temp 97.5 F L 11/24/16 06:37 Pulse 66 11/24/16 06:37 Resp 16 11/24/16 06:37 BP 108/75 11/24/16 06:37 Pulse Ox 94 L 11/24/16 08:48 H&P (including ROS) documented in medical record: Yes Previous reaction to sedatives/anesthetics: No Dietary Status: NPO after Midnight Airway Assessment: Patient can open mouth completely, TMJ function normal ASA Classification *see protocol: CLASS II-Mild systemic disease Plan of Care: Pt appropriate candidate for procedure/moderate/conscious sedation , Risks/benefits of procedure/sedation discussed w/ patient/family
--- NOTE | 2016-11-24 11:37 | History & Physical Report ---
Date of Encounter: 11/24/16 Time of Encounter: 11:35 24 Hour HP Update - Instructions Instructions: If the History and Physical is less than 30 days old and was completed prior to A.M. admission and or procedure and has NOT been updated on calendar day of procedure please complete this update prior to performing procedure. - Update Patient reports changes in Medical Condition: No Changes in assessment/condition: No Changes in Medication: No Preop tests/diagnostics Reviewed: Yes Surgery Remains Indicated: Yes Consent for Planned Operative Procedure(s) Verified: Yes
[2016-11-24] MEDS: Furosemide 40 MG/4 ML VIAL IVP SCH ×2 (12:02→22:07)
[2016-11-24] MEDS ORDERED: Verapamil 5 MG/2 ML VIAL ONE (12:24)
[2016-11-24] MEDS ORDERED: *HR* Heparin 10,000 UNIT/10 ML VIAL ONE (12:25)
[2016-11-24] MEDS ORDERED: 0.9 % Sodium Chloride 1,000 ML ONE ×2 (12:25→12:45)
[2016-11-24] MEDS ORDERED: Heparin 1,000 UNITS/500 mL NS 500 ML ONE (12:25)
[2016-11-24] MEDS ORDERED: Nitroglycerin 1,000 MCG/10 ML VIAL IV ONE (12:25)
[2016-11-24] MEDS ORDERED: *HR* Midazolam HCl 2 MG/2 ML VIAL ONE ×3 (12:45→13:19)
[2016-11-24] MEDS ORDERED: *HR* FentaNYL (PF) 100 MCG/2 ML VIAL ONE (12:45)
[2016-11-24] MEDS ORDERED: Heparin 25,000 UNIT/500 ML D5W 25,000 UNIT/500 ML MLS IVC ONE (14:24)
--- NOTE | 2016-11-24 14:55 | Event Note ---
Date of Encounter: 11/24/16 Time of Encounter: 14:52 - Cardiology Event Note We chose to perform cardiac catheterization to determine any cause of the Severe MR. Cath revealed EF at 40%, roughly 50% LAD, Distal OM 3 at roughly 90% , and right occluded with collaterals in place. It was noted that there was a right femoral thrombus. Vascular was consulted and started on heparin. The patient also had CT surgery consulted for the severe MR. The patient will be started on daily ASA, Lisinopril and Coreg. - Attending Attestation I examined this patient and my medical decision-making was reviewed with the Resident Physician. I agree with the documented findings, disposition and treatment plan as described except to the extent set forth below.
[2016-11-24] MEDS ORDERED: *HR* Heparin 5,000 UNIT/ML VIAL IVP PRN ×2 (15:40→16:07)
[2016-11-24] MEDS ORDERED: Heparin 25,000 UNIT/500 ML D5W 25,000 UNIT/500 ML MLS IVC SCH (15:45)
--- NOTE | 2016-11-24 16:33 | Cardiothoracic Consult Note ---
Date of Encounter: 11/24/16 Time of Encounter: 16:29 Assessment and Plan (1) Severe mitral regurgitation Current Visit: Yes Status: Acute The patient is a 51-year-old lady with a one-month history of nonradiating substernal chest pressure, progressive shortness of breath, and worsening dyspnea on exertion. The patient was evaluated [facility] emergency room and found to have elevated BNP levels consistent with congestive heart failure. The echocardiogram revealed LVEF 60%, severe mitral regurgitation , and moderate to severe tricuspid regurgitation. The patient was noted to have severe pulmonary hypertension with an RVSP 73 mmHg. She underwent cardiac catheterization today and was found to have severe three-vessel CAD. In particular the patient has a 50% proximal LAD lesion, 95% proximal OM 2 lesion, and a completely occluded ostial RCA which fills distally via [id number] collaterals. The heart heart catheterization revealed mild to moderate pulmonary hypertension. The patient has been recommended for combined high risk CABG and MVR. I believe that the patient needs this operation; however, due to her high operative risk given the pulmonary hypertension and decreased lung function (probably from COPD) she should be transferred to a tertiary Medical Center for evaluation and possible operation. The assessment and plan as outlined above was discussed with the patient and/or family members who expressed understanding and agreement. All questions were answered. - History of Present Illness Consult date: 11/24/16 Requesting physician: Prashant Cuenca Consult reason: CAD and MR, severe Chief complaint: Shortness of breath History of present illness: Ms. Cevallos is a 51 year old lady with hypercholesterolemia who complains of a one- month history of nonradiating substernal chest pressure, increasing shortness of breath, and dyspnea on exertion. She states that until one month ago she had no difficulty with her normal activities. Although she is a chronic smoker, she had no complaints of shortness of breath or dyspnea on exertion. The respiratory symptoms began abruptly and progressed such that she was unable to walk in her house without experiencing severe shortness of breath and dyspnea on exertion. The patient was evaluated at a local emergency department and " told that she had normal lung function." On the morning of admission, the patient complained of severe respiratory distress was evaluated in the emergency department. A chest CT showed mild emphysema with bilateral pleural effusions. The patient had elevated BNP levels and an echocardiogram was performed. This revealed an LVEF 60% with severe mitral regurgitation, mild to moderate pulmonic regurgitation, and moderate to severe tricuspid regurgitation. The estimated RVSP was 73 mmHg. The patient then underwent cardiac catheterization today and was found to have severe 3 vessel CAD. In particular the patient has a 50% proximal LAD lesion, 95% proximal OM 2 lesion, a completely occluded ostial RCA which fills distally left -to-right collaterals. She has been recommended for high risk combined CABG and MVR. Past Med Surg Social Fam HX - Past Medical History Medical history: COPD, coronary artery disease, hyperlipidemia, liver disease ( Hepatitis B, hepatitis C), valvular heart disease Psychiatric history: anxiety, depression - Past Surgical History Surgical History: cholecystectomy, hysterectomy, other (Tubal ligation ) - Social History Smoking Status: Current every day smoker Packs per day: 1-2 ppd Smokeless Tobacco Status: No Alcohol use: none, unknown Drug use: none Occupational status: unemployed Current living situation: Home - Independent Activity Level: Independent ambulation Recent Out of Country Travel Within the Last 8 Weeks: No Exposure or Possible Exposure to Illness During Travel: No - Family History Mother Living Status: Still Living Hx Family Cardiac Disorders: No Hx Family Respiratory Disorders: No Hx Family Cancer: No Hx Family GI Disorders: No Hx Family Genitourinary Disorders: No Hx Family Endocrine Disorder: No Hx Family Musculoskeletal Disorders: No Hx Family Neuromuscular Disorders: No Hx Family Neurologic Disorders: No Hx Family HEENT Disorders: No Hx Family Autoimmune Disorders: No Hx Family Reproductive Disorders: No Hx Family Psychosocial Disorders: Yes (anxiety, panic attacks) Hx Family Medical Disorders: No Father Living Status: Hx Family Cardiac Disorders: Yes ([place] age 47, CABG age 56, passed due to complications of CABG) Medications and Allergies Carisoprodol [Soma] 350 mg PO BID 11/22/16 [History] ClonazePAM [Klonopin] 1 mg PO TID PRN 11/22/16 [History] FLUoxetine HCl [Prozac] 40 mg PO BID 11/22/16 [History] Pravastatin Sodium 20 mg PO DAILY 11/22/16 [History] Trazodone HCl 100 mg PO BID 11/22/16 [History] Acetaminophen/Butalbital/Caffe [Fioricet] 1 tab PO Q6HR PRN 11/23/16 [History] Albuterol Sulfate [Ventolin Hfa] 2 puff IH Q4H PRN 11/23/16 [History] Quetiapine Fumarate [Seroquel Xr] 300 mg PO DAILY 11/23/16 [History] Allergies acetaminophen [From Vicodin] Allergy (Verified 11/23/16 09:15) Hives codeine Allergy (Verified 11/23/16 09:15) Hives hydrocodone [From Vicodin] Allergy (Verified 11/23/16 09:15) Hives morphine Allergy (Verified 11/23/16 09:15) Hives All Systems Review: A 10-system review of systems was performed and is negative for pertinent findings except as documented above in the HPI. Physical Examination General: Conversant, No Apparent Distress HEENT: Atraumatic, Normocephaly, Trachea midline Neck: No JVD, Normal carotid pulses Cardiac: Reg Rate and Rhythm, Normal S1 and S2, Other (Soft systolic murmur in the apex.) Lungs: Normal Breath Sounds, No Wheeze, Rales, Rhonchi Neuro: Alert and responsive, No focal deficits noted, Motor nerves intact, Sensory nerves intact Vascular: Normal capillary refill Abdomen: Soft, Non-tender Musculoskeletal: No Chest Wall Tenderness Extremities: No Clubbing, No Cyanosis, No Edema, Other (Pulses absent in the lower extremities below the groin.) Results 11/23/16 00:28 11/24/16 03:40 Lab Results, Last 24 hours 11/24/16 11/24/16 03:40 10:07 INR 1.2 Sodium 141 Potassium 4.0 Chloride 106 Carbon Dioxide 25 BUN 16 D Creatinine 0.75 Glucose 118 H Calcium 8.4 L Magnesium 1.9 - Imaging Chest Xray: image reviewed (Normal cardiac size. Increased pulmonary vascularity /interstitial changes.) Consult Discharge Plan - Plan Referrals: Bhanu Moody DO [Primary Care Provider] - 12/05/16 3:30 pm (Please follow up as schedule..)
--- NOTE | 2016-11-24 17:44 | Electrocardiograph Report ---
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
[2016-11-24 19:45] LABS: INR 1.3; Prothrombin Time 14.2 Seconds (9.4-12.1)
[2016-11-24 19:48] LABS: Activated Partial Thrombo Time 29.8 Seconds (26.0-36.0)
[2016-11-24] MEDS: traZODone 50 MG TABLET PO SCH (22:07)
--- NOTE | 2016-11-25 00:04 | Vascular/Endovasc Consult Note ---
Date of Encounter: 11/24/16 Time of Encounter: 19:00 Assessment and Plan (1) Femoral popliteal artery thrombus Current Visit: Yes Status: Acute The patient is asymptomatic from the left femoral artery thrombus. There are no findings of arterial insufficiency or embolization. The patient has no physical findings to suggest a change from her baseline status. I agree with the use of any coagulation overnight. I reassured the patient and her mother that this process will be treated medically and that no surgical intervention is anticipated. - History of Present Illness Consult date: 11/24/16 Requesting physician: Prashant Cuenca Consult reason: Left femoral artery Chief complaint: Shortness of breath History of present illness: Ms. Cevallos is a 51 year old female Admitted via the emergency room 2 days ago. The patient had presented with a one -month history of worsening of exercise tolerance and shortness of breath. She was taken to the cardiac catheter lab today for further evaluation. A left and right cardiac catheterization was performed via the left groin. At the conclusion of the case it was noted that the thrombus had formed around the left common femoral artery catheter. The patient was placed on heparin and vascular surgery was asked to see the patient because of the presence of a thrombus. The patient denies any symptoms in regards to the left lower extremity at either the puncture site or in the lower extremity at the calf or ankle or foot itself. She denies any previous symptoms of claudication though her exercise tolerance was markedly limited. The results of the cardiac catheterization demonstrated a reduced ejection fraction of approximately 35% with severe mitral valve regurgitation and 2 vessel coronary artery disease. The patient is in the process of being evaluated for transfer to [facility] for combined mitral valve replacement and open heart bypass rafting Past Med Surg Social Fam HX - Past Medical History Medical history: COPD, coronary artery disease, hyperlipidemia, liver disease ( Hepatitis B, hepatitis C), valvular heart disease Psychiatric history: anxiety, depression - Past Surgical History Surgical History: cholecystectomy, hysterectomy, other (Tubal ligation ) - Social History Smoking Status: Current every day smoker Packs per day: 1-2 ppd Smokeless Tobacco Status: No Alcohol use: none, unknown Drug use: none - Family History Mother Living Status: Still Living Hx Family Cardiac Disorders: No Hx Family Respiratory Disorders: No Hx Family Cancer: No Hx Family GI Disorders: No Hx Family Genitourinary Disorders: No Hx Family Endocrine Disorder: No Hx Family Musculoskeletal Disorders: No Hx Family Neuromuscular Disorders: No Hx Family Neurologic Disorders: No Hx Family HEENT Disorders: No Hx Family Autoimmune Disorders: No Hx Family Reproductive Disorders: No Hx Family Psychosocial Disorders: Yes (anxiety, panic attacks) Hx Family Medical Disorders: No Father Living Status: Hx Family Cardiac Disorders: Yes ([place] age 47, CABG age 56, passed due to complications of CABG) Medications and Allergies Carisoprodol [Soma] 350 mg PO BID 11/22/16 [History] ClonazePAM [Klonopin] 1 mg PO TID PRN 11/22/16 [History] FLUoxetine HCl [Prozac] 40 mg PO BID 11/22/16 [History] Pravastatin Sodium 20 mg PO DAILY 11/22/16 [History] Trazodone HCl 100 mg PO BID 11/22/16 [History] Acetaminophen/Butalbital/Caffe [Fioricet] 1 tab PO Q6HR PRN 11/23/16 [History] Albuterol Sulfate [Ventolin Hfa] 2 puff IH Q4H PRN 11/23/16 [History] Quetiapine Fumarate [Seroquel Xr] 300 mg PO DAILY 11/23/16 [History] Allergies acetaminophen [From Vicodin] Allergy (Verified 11/23/16 09:15) Hives codeine Allergy (Verified 11/23/16 09:15) Hives hydrocodone [From Vicodin] Allergy (Verified 11/23/16 09:15) Hives morphine Allergy (Verified 11/23/16 09:15) Hives All Systems Review: A 10-system review of systems was performed and is negative for pertinent findings except as documented above in the HPI. Exam Vital Signs, Last 4 Hours Temp Pulse Resp BP Pulse Ox 11/24/16 20:18 97.6 F 55 17 98/56 93 L General: Present: Conversant, No Apparent Distress HEENT: Present: Atraumatic, Normocephaly, Trachea midline Neck: Absent: JVD, Lymphadenopathy, Left Carotid bruit, Right Carotid bruit, Midline deformity, Tracheal deviation Cardiac: Present: Reg Rate and Rhythm, Normal S1 and S2 Lungs: Present: Normal Breath Sounds Neuro: Present: Alert and responsive, No focal deficits noted Abdomen: Present: Soft, Non-tender. Absent: Hepatosplenomegaly, Masses Vascular: Present: Normal capillary refill, Pulse, normal, Color/Temperature ( Within normal limits bilateral and symmetrical). Absent: Clubbing, Cyanosis, Edema, Surgical incisions, Other (ture site. There is no swelling or discoloration or bruit in this region.) Skin: Present: No rashes noted on visualized skin, Other (No findings of distal embolization into the left foot or toes.) Consult Discharge Plan - Plan Referrals: Bhanu Moody DO [Primary Care Provider] - 12/05/16 3:30 pm (Please follow up as schedule..)
[2016-11-25 03:12] LABS: Basophils % 0.3 %; Eosinophils # 0.2 K/mcL (0.0-0.6); Eosinophils % 2.1 %; Hematocrit 37.1 % (35.3-44.9); Immature Granulocytes % 0.4 % (0-4); Lymphocytes # 3.5 K/mcL (0.6-4.6); Lymphocytes % 33.9 %; Mean Corpuscular HGB Conc 32.1 g/dL (31.6-35.5); Mean Corpuscular Hemoglobin 29.5 pg (28.0-33.3); Mean Corpuscular Volume 91.8 fL (83.0-100.0); Mean Platelet Volume 8.6 fL (9.4-12.4); Monocytes # 0.6 K/mcL (0.0-1.3); Monocytes % 5.5 %; Platelet Count 394 K/mcL (140-400); Red Blood Count 4.04 M/mcL (3.82-4.97); Red Cell Distribution Width 15.6 % (11.5-14.5); Segmented Neutrophils % 57.8 %
[2016-11-25 03:19] LABS: BUN/Creatinine Ratio 19 (6-26); Blood Urea Nitrogen 15 mg/dL (7-20); Calcium 8.6 mg/dL (8.6-10.8); Carbon Dioxide 27 mEq/L (19-29); Chloride 99 mEq/L (98-109); Glucose 128 mg/dL (70-99); Magnesium 1.7 mg/dL (1.6-2.6); Osmolality,Calculated 286 (280-300); Phosphorous 4.3 mg/dL (2.3-4.7); Potassium 3.3 mEq/L (3.5-4.5); Sodium 137 mEq/L (136-145); eGFR For African Americans > 60 (> 60); eGFR For Non-African Americans > 60 (> 60)
[2016-11-25 03:40] LABS: Hemoglobin 11.9 g/dL (11.5-15.4)
[2016-11-25] MEDS: Ibuprofen 400 MG TABLET PO PRN ×2 (03:56→09:43)
--- NOTE | 2016-11-25 06:15 | Electrocardiograph Report ---
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
--- NOTE | 2016-11-25 08:07 | Invasive Diagnostic Lab ---
Name: Clemencia Cevallos Date of Study: 11/24/2016 Date: 1965 Ht: 167.6 cm /66.0 in Medical Record#: [id number] Age: 51 Wt: 68. kg / 149.91 lb Account/Order#: [id number] Gender: Female BSA: 1.77 Order #: [id number] Fluoro Dose: 566 mGy BMI: 24.21 Procedure Physician: Prashant Cuenca MD, [facility] Referring MD: Referring MD: Procedures Performed: RHC/LHC Indications: Pulmonary Hypertention, Abnormal Test - ECHO Impressions: There is severe two vessel coronary artery disease - codominant PDA with occluded RCA that has mature collaterals and severe ostial OM 3 disease Mean pulmonary arterial pressure 38 Severe Mitral Regurgitation. Recommendations: Optimal medical therapy of patient's disease. Aggressive risk factor modification. 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 Prolonged procedure partially secondary to difficulty with hemodynamic cable Complications: None Contrast: Isovue 156ml Hemodynamics: Pressures Site Systolic/ A Wave Diastolic/ V Wave End Diastolic/ Mean HR AO 85 54 69 60 AO 83 54 67 56 LV 115 3 9 67 LV 96 1 6 66 AO 95 43 66 63 AO 83 60 71 61 PCW 22 20 18 62 MPA 43 31 38 63 RV 39 6 6 61 RA 16 14 13 60 Oximetry Site Saturation PA 69.1 PA 69.1 FEM_ART 94 FEM_ART 94 RA 61.4 RA 61.4 Right Heart Data Thermodilution Cardiac Output (l/min) 3.8 (severe MR) LV Ventriculography Ejection Method: LV Gram Ejection Fraction: 45-50%. Suboptimal opacification 4+ MR Wall Motion: CAZARES Anterobasal Borderline Hypokinesis Anterolateral Borderline Hypokinesis Apical: Borderline Hypokinesis Inferoapical Borderline Hypokinesis Inferobasal Borderline Hypokinesis Coronary Dominance: Co Lesion Findings/Interventions * Left Main Coronary Artery The LMCA is angiographically free of disease. * Left Anterior Descending There is a 50% stenosis in the Proximal LAD and 30% mid LAD. The lesion has a MARCO ANTONIO flow of 3. * Circumflex There is a 20% stenosis in the Proximal Circumflex. There is a 90% stenosis in the 3rd Marginal. 30-0% L PDA disease * Right Coronary Artery There is a 100% stenosis in the Ostial RCA. The lesion has a MARCO ANTONIO flow of 0. The lesion has a MARCO ANTONIO flow of 3 and has collaterals which feed from left to right. Tortuous left common iliac artery. Thrombus at sheath access site in the SPIN TABLE OPERATOR and proximal profunda. 2+ pedal pulse. Updated by [facility], RT (R) on 11/24/2016 3:20:55 PM Prashant Cuenca MD, FACC electronically signed on 11/25/2016 8:03:53 AM with status of Final
--- NOTE | 2016-11-25 08:26 | Discharge Summary ---
Date of Encounter: 11/25/16 Time of Encounter: 08:00 - Discharge Diagnosis (1) Acute respiratory failure with hypoxia Priority: Primary Status: Acute (2) Acute diastolic (congestive) heart failure Priority: Primary Status: Acute (3) Severe mitral regurgitation Priority: Primary Status: Acute (4) Moderate tricuspid regurgitation Priority: Primary Status: Acute (5) Moderate to severe pulmonary hypertension Priority: Primary Status: Acute (6) Femoral popliteal artery thrombus Priority: Primary Status: Acute (7) Pleural effusion Priority: Primary Status: Acute (8) Hypomagnesemia Priority: Primary Status: Resolved (9) COPD (chronic obstructive pulmonary disease) Priority: Secondary Status: Chronic Qualifiers: COPD type: chronic bronchitis Chronic bronchitis type: mixed simple and mucopurulent Qualified Code(s): J41.8 - Mixed simple and mucopurulent chronic bronchitis (10) CAD (coronary artery disease) Priority: Secondary Status: Chronic Qualifiers: Coronary Disease-Associated Artery/Lesion type: [place] artery [place] vs. transplanted heart: [place] heart Associated angina: with unspecified angina Qualified Code(s): I25.119 - Atherosclerotic heart disease of [place] coronary artery with unspecified angina pectoris (11) Bipolar 1 disorder Priority: Secondary Status: Chronic (12) Tobacco abuse Priority: Secondary Status: Chronic - Discharge Medications Home Medications: ClonazePAM [Klonopin] 1 mg PO TID PRN 11/22/16 [History] FLUoxetine HCl [Prozac] 40 mg PO BID 11/22/16 [History] Pravastatin Sodium 20 mg PO DAILY 11/22/16 [History] Acetaminophen/Butalbital/Caffe [Fioricet] 1 tab PO Q6HR PRN 11/23/16 [History] Quetiapine Fumarate [Seroquel Xr] 300 mg PO DAILY 11/23/16 [History] Albuterol Neb [Proventil Neb] 2.5 mg IH Q2H PRN #0 inhsol 11/25/16 [Rx] Aspirin 81 mg PO DAILY tab.chew 11/25/16 [Rx] Carvedilol [Coreg] 3.125 mg PO BIDWM tablet 11/25/16 [Rx] Furosemide [Lasix] 40 mg IVP BID vial 11/25/16 [Rx] Lisinopril [Zestril] 2.5 mg PO DAILY tablet 11/25/16 [Rx] Nicotine Patch [Nicoderm] 14 mg TD DAILY patch.td24 11/25/16 [Rx] TraZODone 100 mg PO HS tablet 11/25/16 [Rx] Allergies/Adverse Reactions: Allergies acetaminophen [From Vicodin] Allergy (Verified 11/23/16 09:15) Hives codeine Allergy (Verified 11/23/16 09:15) Hives hydrocodone [From Vicodin] Allergy (Verified 11/23/16 09:15) Hives morphine Allergy (Verified 11/23/16 09:15) Hives Procedures/tests Complete & Pending: Procedures Performed prior 72 hours Category Date Time Status CL Cardiac Catheterization [CL] Routine Telemetry Monitor 11/24/16 09:24 Completed ECG 12 lead ECG [ECG] Routine Y 11/23/16 08:56 Completed EV echocardiogram Routine Y 11/23/16 23:11 Completed Date of admission: 11/22/16 21:34 Primary care physician: Bhanu Moody Consults: 11/22/16 23:27 Consult to Cardiology [CONS] Routine Comment: Consulting Provider: Cardiology Barbra Reason for Consult: CHF- new onset Time Notified: 23:28 Call Completed: No 11/24/16 14:22 Consult to Cardiothoracic Surgery [CONS] Routine Consulting Provider: Cardiothoracic Surgery Barbra Reason for Consult: Severe mitral regurgitation Time Notified: 14:23 Call Completed: Yes 11/24/16 17:05 Consult to Vascular Surgery [CONS] Routine Consulting Provider: Vascular Surgery Barbra 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 No chest pain. She agrees to be transferred to [facility]. Hospital course: Ms. Cevallos is a 51 year old female with past medical history of COPD, bipolar disorder, liver disease (hepatitis B and C) and heavy tobacco use. Patient presented with progressive shortness of breath. She was admitted for hypoxemia , pulmonary edema, acute heart failure, severe MR and severe pulmonary hypertension. CTA of the chest revealed no PE, moderate bilateral pleural effusions with interlobular septal thickening and patchy infiltrates throughout the lungs suspicious for pulmonary edema. Multiple small mediastinal and right hilar nodes. Patient received diuresis with IV Lasix twice a day, and was started on fluid restriction, and low-salt diet. Her hypoxemia improved as well as her dyspnea at rest. Echocardiogram showed LVEF 60%, significantly elevated diastolic filling pressures, severe mitral regurgitation, moderate to severe tricuspid regurgitation, and severe pulmonary hypertension. Patient underwent left heart catheterization revealing LVEF 40%, and severe 3 vessel CAD (50% proximal LAD lesion, 95% proximal OM 2 lesion, a completely occluded ostial RCA which fills distally [id number] collaterals). Right femoral thrombus noted. He was started on IV heparin drip for this. Cardiothoracic surgery evaluated the patient and recommended transfer to a tertiary Medical Center for evaluation and possible combined high risk CABG and MVR. Vascular service consulted for femoral popliteal artery thrombus and recommended anti-coagulation with heparin drip. PLAN: I spoke to [facility] transfer center and they agree to take the patient. They will call us with the bed. - Time Spent with Patient Total time spent providing and/or coordinating discharge services: - Constitutional Vitals: Temp Pulse Resp BP Pulse Ox 97.9 F 60 16 99/60 92 L 11/25/16 07:06 11/25/16 07:06 11/25/16 07:06 11/25/16 07:06 11/25/16 07:06 General appearance: Present: cooperative, A&O X 3, pleasant, no acute distress, answers questions appropriately
--- NOTE | 2016-11-25 08:47 | Invasive Diagnostic Lab Proc ---
Name: Clemencia Cevallos Date of Study: 11/24/2016 Date: 1965 Ht: 66.0in Medical Record#: [id number] Age: 51 Wt: 149.91lb Gender: Female BSA: 1.77 Order #: [id number] BMI: 24.21 Physicians Procedure Physician: Prashant Cuenca MD, FACC Referring MD: Referring MD: Staff Name Position Time In Anna Murguia RN Nurse 02:50 PM Bianca Nesbitt RN Senior Game Advisor 02:50 PM Cayla Montalvo RT (R) Scrub 02:50 PM Minnie Ty RT (R) Monitor 02:50 PM Indications Indication Pulmonary Hypertention Abnormal Test - ECHO Procedures Performed Procedure R\\T\\L HRT ART/VENTRICLE ANGIO Pre-Procedure Checklist Informed consent is complete signed and on chart. H\\T\\P is on chart. ID band is on and ID verified with patient. Patient NPO for procedure The procedure was described for the patient and questions were answered. Blood Pressure: 104/67 ECG is on chart. Rhythm: NSR Plan of Care Patient will tolerate the procedure without complications. Adequate level of comfort will be maintained. Hemodynamics will remain stable Patient will recover from procedure without complications. Respiratory function will be maintained. Cardiac rhythm will remain stable. Patient temperature will be maintained. Patient and/or family have verbalized understanding of the procedure. Patient Education Chief Complaint/Reason for Test: Cardiac Cath Developmental Category: Adult (18-64 years) Developmentally Appropriate for Age: Yes Learning Barriers: None Education Needs: Procedure Education Method: Verbal Information Taught: Cardiac Cath Educational Evaluation: Able to repeat information Intravenous Access Time IV Size Location DC'd Fluid/Drip Rate Units RN 01:00 PM 20g 1 10/05" Patent On Arrival Rt Arm 0.9NaCl 50 ml/hr Bianca Nesbitt RN Allergies morphine hydrocodone acetaminophen codeine Vital Signs Time BP (mmHg) HR (bpm) O2 Sat. RR (bpm) LOC 12:31 PM 104 / 67 60 97 % 16 5 = Fully awake and oriented or at pre-proc level 01:01 PM / % 4 = Oriented but drowsy 01:01 PM / % 4 = Oriented but drowsy 01:16 PM / % 4 = Oriented but drowsy 02:42 PM / % 4 = Oriented but drowsy 12:59 PM 130 / 75 68 94 % 36 01:01 PM 124 / 71 65 94 % 30 01:03 PM 121 / 67 65 92 % 25 01:05 PM 113 / 65 63 92 % 20 01:07 PM 116 / 68 64 92 % 27 01:09 PM 114 / 68 61 92 % 31 01:11 PM 120 / 53 63 91 % 19 01:13 PM 112 / 62 62 91 % 23 01:15 PM 113 / 63 61 94 % 19 01:17 PM 114 / 59 64 94 % 26 01:19 PM 121 / 66 64 94 % 26 01:22 PM 110 / 54 64 95 % 25 01:23 PM 113 / 59 64 95 % 24 01:25 PM 106 / 58 58 95 % 23 01:49 PM 105 / 57 60 94 % 21 01:51 PM 110 / 62 61 95 % 18 01:53 PM 109 / 63 60 97 % 20 01:55 PM 105 / 60 60 95 % 22 01:57 PM 103 / 56 59 94 % 17 01:59 PM 99 / 55 59 96 % 21 02:01 PM 103 / 59 58 88 % 22 02:03 PM 103 / 53 60 88 % 26 02:05 PM 104 / 63 59 94 % 21 02:07 PM 109 / 56 58 94 % 19 02:09 PM 105 / 61 57 94 % 19 02:33 PM 109 / 56 59 96 % 22 02:35 PM 112 / 64 58 94 % 18 02:37 PM 113 / 64 59 99 % 20 02:39 PM 117 / 61 58 98 % 16 02:41 PM 113 / 60 58 96 % 16 02:43 PM 115 / 56 57 99 % 16 02:45 PM 117 / 60 57 96 % 16 02:47 PM 117 / 57 58 95 % 19 02:49 PM 119 / 64 57 95 % 13 01:27 PM 119 / 62 67 95 % 18 01:29 PM 106 / 60 67 93 % 26 01:31 PM 111 / 61 67 94 % 21 01:33 PM 112 / 71 67 94 % 14 01:35 PM 117 / 64 65 95 % 19 01:37 PM 109 / 65 63 96 % 19 01:39 PM 115 / 66 64 93 % 24 01:41 PM 109 / 60 62 93 % 20 01:43 PM 107 / 60 61 93 % 21 01:45 PM 106 / 60 62 93 % 20 01:47 PM 102 / 55 60 94 % 24 02:11 PM 108 / 60 58 95 % 20 02:13 PM 110 / 62 58 95 % 20 02:15 PM 110 / 57 58 98 % 19 02:17 PM 109 / 64 59 95 % 19 02:19 PM 108 / 63 58 94 % 20 02:21 PM 97 / 46 60 97 % 21 02:23 PM 102 / 61 58 94 % 18 02:25 PM 107 / 60 58 95 % 18 02:27 PM 107 / 64 57 96 % 17 02:29 PM 106 / 54 57 98 % 13 02:31 PM 112 / 58 58 97 % 20 03:15 PM 113 / 68 57 93 % 18 5 = Fully awake and oriented or at pre-proc level 03:30 PM 115 / 67 59 95 % 18 5 = Fully awake and oriented or at pre-proc level 03:45 PM 114 / 71 56 95 % 18 5 = Fully awake and oriented or at pre-proc level 04:00 PM 105 / 71 58 96 % 16 5 = Fully awake and oriented or at pre-proc level 04:15 PM 113 / 75 60 97 % 16 5 = Fully awake and oriented or at pre-proc level 04:30 PM 110 / 71 60 96 % 18 5 = Fully awake and oriented or at pre-proc level 04:45 PM 121 / 75 58 95 % 18 5 = Fully awake and oriented or at pre-proc level 05:00 PM 121 / 74 56 97 % 18 5 = Fully awake and oriented or at pre-proc level 05:15 PM 113 / 66 60 90 % 18 5 = Fully awake and oriented or at pre-proc level Procedural Medications Time Medication Dose Units Method Given By 12:58 PM Versed 2 mg Intravenous Bianca Nesbitt RN 12:58 PM Fentanyl 50 mcg Intravenous Bianca Nesbitt RN 01:00 PM Oxygen 4 L/min nasal cannula Bianca Nesbitt RN 01:02 PM Fentanyl 25 mcg Intravenous Bianca Nesbitt RN 01:04 PM Lidocaine 2% 20 ml Subcutaneous Prashant Cuenca MD, FACC 01:05 PM Versed 2 mg Intravenous Bianca Nesbitt RN 01:05 PM Oxygen 6 L/min nasal cannula Bianca Nesbitt RN 01:10 PM Lidocaine 2% 12 ml Subcutaneous Prashant Cuenca MD, FACC 01:12 PM Benadryl 25 mg Intravenous Bianca Nesbitt RN 01:15 PM Fentanyl 25 mcg Intravenous Bianca Nesbitt RN 02:25 PM Heparin 3000 units Intra Arterial Prashant Cuenca MD 02:29 PM Heparin 1700 units Intra Arterial Prashant Cuenca MD 02:29 PM Heparin 19.4 ml/hr Dc'd Bianca Nesbitt RN ASA Classification: CLASS II- Mild systemic disease (i.e. well-controlled diabetes, hypertension, asthma, cigarette smoking) Naima Score Preprocedure Postprocedure Activity 2- Moves 4 extremities sustained head lift Activity 2- Moves 4 extremities sustained head lift Circulation 2- SBP +/= 20 points of pre-anesthetic level Circulation 2- SBP +/= 20 points of pre-anesthetic level Consciousness 2- Awake and alert oriented x 3 Consciousness 2- Awake and alert oriented x 3 O2 Saturation 2- Able to maintain O2 satruation of 92% on room air O2 Saturation 2- Able to maintain O2 satruation of 92% on room air Respiratory 2- Able to deep breathe and cough well Respiratory 2- Able to deep breathe and cough well Total Score 10 Total Score 10 Contrast Agent: Isovue Diagnostic Contrast: 156 ml Total Contrast: 156 ml Fluoro Dose: 566 mGy Activated Clotting Time Time Seconds to Clot 02:48 PM 400 04:31 PM 146 Procedure Log Time Note Enter By 12:48 PM CathStat 12:49 PM 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 well-controlled diabetes, hypertension, asthma, cigarette smoking) tsites 12:49 PM Meet and greet completed tsites 12:49 PM Sign in performed according to hospital policy. tsites 12:49 PM Procedure start 12:49 tsites 12:49 PM Clinical Presentation: Unstable angina tsites 12:53 PM Hair removed from procedure site in holding area using clippers. Bilateral groin prepped with Chloraprep by Bianca Nesbitt RN then patient draped. Skin intact. tsites 12:58 PM Recorded ECG: HR=69 Condition=Condition 1 12:58 PM Vitals capture started with the following parameters, Patient=Adult, Interval=2 min, Initial Mjfcrpnt=044 mmHg, Deflation Rate=5 mmHg 12:58 PM Time: 12:58 Versed 2 mg Intravenous Given by Bianca Nesbitt RN tsites 12:58 PM Time: 12:58 Fentanyl 50 mcg Intravenous Given by Bianca Nesbitt RN tsites 12:59 PM HR=68 bpm, YOPB=370/75 mmhg, SpO2=94.0 %, Resp=36 B/min 01:00 PM Time: 13:00 Oxygen on at 4 L/min per nasal cannula by Bianca Nesbitt RN tsites 01:01 PM Time: 13:01 Patient comfortable and pain free: Yes ites 01: PM Time: 13:01LOC: 4 = Oriented but drowsy tsites 01: PM HR=65 bpm, NSKF=908/71 mmhg, SpO2=94.0 %, Resp=30 B/min 01:02 PM Time out performed according to hospital policy tsites 01:03 PM Time: 13:02 Fentanyl 25 mcg Intravenous Given by Bianca Nesbitt RN tsites 01:03 PM Pressure channel 1 zeroed. 01:03 PM HR=65 bpm, UALK=842/67 mmhg, SpO2=92.0 %, Resp=25 B/min 01:05 PM Time: 13:04 20 ml Lidocaine 2% to right groin Subcutaneous Given by Prashant Cuenca MD, [facility] tsites 01:05 PM Time: 13:05 Versed 2 mg Intravenous Given by Bianca Nesbitt RN tsites 01:05 PM HR=63 bpm, EHOS=884/65 mmhg, SpO2=92.0 %, Resp=20 B/min 01:05 PM Time: 13:05 Oxygen on at 6 L/min per nasal cannula by Bianca Nesbitt RN tsites 01:07 PM HR=64 bpm, JZOE=936/68 mmhg, SpO2=92.0 %, Resp=27 B/min 01:09 PM HR=61 bpm, XYQI=654/68 mmhg, SpO2=92.0 %, Resp=31 B/min 01:11 PM HR=63 bpm, BLXC=151/53 mmhg, SpO2=91.0 %, Resp=19 B/min 01:12 PM Time: 13:10 12 ml Lidocaine 2% to left groin Subcutaneous Given by Prashant Cuenca MD, [facility] tsites 01:12 PM Time: 13:12 Benadryl 25 mg Intravenous Given by Bianca Nesbitt RN tsites 01:13 PM HR=62 bpm, NTXA=841/62 mmhg, SpO2=91.0 %, Resp=23 B/min 01:13 PM Access obtained by percutaneous puncture. 5Fr 10cm Terumo [place] sheath placed in left Femoral artery. [id number] ilson 01:15 PM Time: 13:15 Fentanyl 25 mcg Intravenous Given by Bianca Nesbitt RN tsites 01:15 PM HR=61 bpm, FXAM=312/63 mmhg, SpO2=94.0 %, Resp=19 B/min 01:16 PM Time: 13:01 Patient comfortable and pain free: Yes tsites :16 PM Time: 13:01LOC: 4 = Oriented but drowsy tsites 01:16 PM Fluids increased to 50 cc/hr. tsites 01:16 PM 5Fr FL 4 catheter inserted over the wire DN tsites 01:17 PM HR=64 bpm, RFUD=133/59 mmhg, SpO2=94.0 %, Resp=26 B/min 01:19 PM HR=64 bpm, SEAM=150/66 mmhg, SpO2=94.0 %, Resp=26 B/min 01:19 PM Catheter and wire removed. tsites 01:19 PM Groin angiography performed. tsites 01:20 PM 5Fr FR 4 catheter inserted over the wire [facility] tsites 01:20 PM 0.035 260cm Traitifyson wire [id number] tsites 01:22 PM Wire removed, intact. tsites 01:22 PM HR=64 bpm, OOXZ=225/54 mmhg, SpO2=95.0 %, Resp=25 B/min 01:22 PM 0.035 150cm VSI Phil-Torque wire [id number] tsites 01:22 PM Wire removed, intact. tsites 01:23 PM HR=64 bpm, HIEJ=092/59 mmhg, SpO2=95.0 %, Resp=24 B/min 01:23 PM Wire reinserted. tsites 01:23 PM Catheter removed, intact. tsites 01:24 PM FL4 inserted tsites 01:24 PM Recorded Pressure: Ao, HR=60, Condition=Condition 1 (Aorta) Ao 85/54/69 01:25 PM LCA angiography performed in multiple views. tsites 01:25 PM HR=58 bpm, JGIE=551/58 mmhg, SpO2=95.0 %, Resp=23 B/min 01:25 PM Recorded Pressure: Ao, HR=56, Condition=Condition 1 (Aorta) Ao 83/54/67 01:26 PM Coronary Dominance: Left tsites 01:26 PM 5Fr 3DRC catheter inserted over the wire [id number] tsites 01:26 PM Wire reinserted and catheter removed, intact. tsites 01:27 PM HR=67 bpm, SLYT=267/62 mmhg, SpO2=95.0 %, Resp=18 B/min 01:28 PM Catheter removed, intact. tsites 01:28 PM Lesion found in Proximal Circumflex. Pre Stenosis: 20 Pre MARCO ANTONIO Flow: tsites 01:28 PM Lesion found in 3rd Marginal. Pre Stenosis: 95 Pre MARCO ANTONIO Flow: 3: Complete and Brisk Flow/Perfusion tsites 01:29 PM Circumflex, Obtuse Marginal, Left Posterior Descending, and Left Posterolateral Coronary Arteries with 95 % stenosis. If graft is supplying this area, 0 % stenosis tsites 01:29 PM HR=67 bpm, GLRH=121/60 mmhg, SpO2=93.0 %, Resp=26 B/min 01:29 PM Recorded Pressure: LV, HR=67, Condition=Condition 1 (Left Ventricle) LV 115/3/9 01:30 PM 5Fr Pigtail catheter inserted over the wire [facility] tsites 01:30 PM Catheter selectively placed in left ventricle tsites 01:30 PM Wire removed, intact. tsites 01:30 PM Recorded Pressure: LV, Ao, HR=64, Condition=Condition 1 (Left Ventricle) LV 96/1/6, (Aorta) Ao 95/43/66 01:30 PM Wire reinserted and catheter removed. tsites 01:31 PM 5Fr MPA catheter inserted over the wire [id number] tsites 01:31 PM Time: 13:16 Patient comfortable and pain free: Yes tsites 01:31 PM HR=67 bpm, JBWC=544/61 mmhg, SpO2=94.0 %, Resp=21 B/min 01:31 PM Wire removed, intact. tsites 01:31 PM Bolus angiogram of left Ventricle complete: 12 ml/sec for a total of 35 mls tsites 01:32 PM Wire reinserted. tsites 01:33 PM HR=67 bpm, YMBK=670/71 mmhg, SpO2=94.0 %, Resp=14 B/min 01:35 PM 5Fr AR1 catheter inserted over the wire [id number] twilson 01:35 PM HR=65 bpm, CBLY=921/64 mmhg, SpO2=95.0 %, Resp=19 B/min 01:35 PM Wire removed, intact. twilson 01:35 PM Access obtained by percutaneous puncture. 7Fr 11cm Cordis Samantha sheath placed in left Femoral vein. [id number] twilson 01:37 PM HR=63 bpm, FKLC=880/65 mmhg, SpO2=96.0 %, Resp=19 B/min 01:38 PM Wire reinserted and catheter removed. twilson 01:39 PM HR=64 bpm, CPZJ=214/66 mmhg, SpO2=93.0 %, Resp=24 B/min 01:40 PM 5Fr IM catheter inserted over the wire [id number] twilson 01:41 PM HR=62 bpm, CDJW=785/60 mmhg, SpO2=93.0 %, Resp=20 B/min 01:41 PM Recorded Pressure: Ao, HR=61, Condition=Condition 1 (Aorta) Ao 83/60/71 01:43 PM Oxygen removed for RHC. twilson 01:43 PM IM catheter removed, intact. twilson 01:43 PM HR=61 bpm, MMIR=944/60 mmhg, SpO2=93.0 %, Resp=21 B/min 01:43 PM 7 F [employer] Naylor-Sarah straight tip inserted through venous sheath twilson 01:44 PM Pressure channel 1 zeroed. 01:45 PM Recorded Pressure: PCW, HR=62, Condition=Condition 1 (Pulmonary Capillary Wedge) PCW 22/20/18 01:45 PM HR=62 bpm, NXQG=623/60 mmhg, SpO2=93.0 %, Resp=20 B/min 01:46 PM Recorded Pressure: MPA, HR=63, Condition=Condition 1 (Main Pulmonary Artery) MPA 43/31/38 01:46 PM Time: 13:31 Patient comfortable and pain free: Yes twilson 01:47 PM HR=60 bpm, QLKJ=752/55 mmhg, SpO2=94.0 %, Resp=24 B/min 01:49 PM HR=60 bpm, ZHGS=109/57 mmhg, SpO2=94.0 %, Resp=21 B/min 01:50 PM Pressure channel 1 zeroed. 01:51 PM Recorded Pressure: MPA, HR=62, Condition=Condition 1 (Main Pulmonary Artery) MPA 44/18/31 01:51 PM HR=61 bpm, ZOWA=314/62 mmhg, SpO2=95.0 %, Resp=18 B/min 01:53 PM Saturation: Site=PA (Pulmonary Artery) , O2=69.1 %, Hgb=10.2 gm/dl, Condition=Condition 1. Used in calculation. 01:53 PM HR=60 bpm, BEQL=592/63 mmhg, SpO2=97.0 %, Resp=20 B/min 01:54 PM Recorded Pressure: RV, HR=61, Condition=Condition 1 (Right Ventricle) RV 39/6/6 01:55 PM HR=60 bpm, WLDV=455/60 mmhg, SpO2=95.0 %, Resp=22 B/min 01:56 PM Thermo CO: CO=4.0 l/m, HR=60 bpm, Condition=Condition 1. Used in calculation. Equipment: Description and Size=SWAN 7FR, Type=Bath Probe, CC=0.578 Injectant: Temp=19.0 - 22.0 Celsius, Volume=10.0 ml 01:57 PM Thermo CO: CO=3.5 l/m, HR=59 bpm, Condition=Condition 1. Used in calculation. Equipment: Description and Size=SWAN 7FR, Type=Bath Probe, CC=0.578 Injectant: Temp=19.0 - 22.0 Celsius, Volume=10.0 ml 01:57 PM HR=59 bpm, AEDO=814/56 mmhg, SpO2=94.0 %, Resp=17 B/min 01:57 PM Thermo CO: CO=4.0 l/m, HR=60 bpm, Condition=Condition 1. Used in calculation. Equipment: Description and Size=SWAN 7FR, Type=Bath Probe, CC=0.578 Injectant: Temp=19.0 - 22.0 Celsius, Volume=10.0 ml 01:58 PM Saturation: Site=FA (Femoral Artery) , O2=94 %, Hgb=10.2 gm/dl, Condition=Condition 1. Used in calculation. 01:59 PM HR=59 bpm, NIBP=99/55 mmhg, SpO2=96.0 %, Resp=21 B/min 01:59 PM Saturation: Site=RA (Right Atrium) , O2=61.4 %, Hgb=10.2 gm/dl, Condition=Condition 1. Used in calculation. 02:00 PM Recorded Pressure: RA, HR=60, Condition=Condition 1 (Right Atrium) RA 02:01 PM HR=58 bpm, WUIZ=279/59 mmhg, SpO2=88.0 %, Resp=22 B/min 02:01 PM Time: 13:46 Patient comfortable and pain free: Yes twilson 02:01 PM Right heart hemodynamics, O2 saturations and Cardiac Outputs obtained. twilson 02:02 PM Naylor-Sarah catheter removed with balloon intact twilson 02:03 PM HR=60 bpm, KXII=024/53 mmhg, SpO2=88.0 %, Resp=26 B/min 02:03 PM Oxygen on patient. twilson 02:04 PM 5Fr AR MOD catheter inserted over the wire [id number] twilson 02:05 PM Wire removed, intact. twilson 02:05 PM Wire reinserted. twilson 02:05 PM Wire removed, intact. twilson 02:05 PM HR=59 bpm, DTJX=537/63 mmhg, SpO2=94.0 %, Resp=21 B/min 02:06 PM Wire reinserted and catheter removed, intact. twilson 02:06 PM 3DRC reinserted. twilson 02:07 PM Wire removed, intact. twilson 02:07 PM HR=58 bpm, FOUN=071/56 mmhg, SpO2=94.0 %, Resp=19 B/min 02:09 PM HR=57 bpm, KWGN=637/61 mmhg, SpO2=94.0 %, Resp=19 B/min 02:09 PM Catheter removed, intact. twilson 02:09 PM Pigtail reinserted. twilson 02:11 PM Wire and catheter removed, intact, to exchange for a different wire. twilson 02:11 PM HR=58 bpm, XFOV=222/60 mmhg, SpO2=95.0 %, Resp=20 B/min 02:11 PM Wholey wire and pigtail catheter reinserted. twilson 02:12 PM Pigtail catheter removed, intact. twilson 02:13 PM HR=58 bpm, BPLF=808/62 mmhg, SpO2=95.0 %, Resp=20 B/min 02:14 PM JR4 reinserted twilson 02:14 PM Wire removed, intact. twilson 02:14 PM Wire reinserted. twilson 02:15 PM HR=58 bpm, COST=517/57 mmhg, SpO2=98.0 %, Resp=19 B/min 02:16 PM Wholey wire removed, intact. twilson 02:16 PM Time: 14:01 Patient comfortable and pain free: Yes twilson 02:16 PM J-wire reinserted. twilson 02:17 PM HR=59 bpm, YKXR=645/64 mmhg, SpO2=95.0 %, Resp=19 B/min 02:17 PM Catheter removed, intact. twilson 02:19 PM HR=58 bpm, WDJK=219/63 mmhg, SpO2=94.0 %, Resp=20 B/min 02:20 PM Pigtail reinserted. twilson 02:21 PM Wire removed, intact. twilson 02:21 PM HR=60 bpm, NIBP=97/46 mmhg, SpO2=97.0 %, Resp=21 B/min 02:22 PM Bolus angiogram of Aortic root complete: 10 ml/sec for a total of 20 mls twilson 02:23 PM Wire reinserted and catheter removed. twilson 02:23 PM HR=58 bpm, NNWA=234/61 mmhg, SpO2=94.0 %, Resp=18 B/min 02:24 PM Bolus angiogram of left Femoral complete: 4 ml/sec for a total of 7 mls twilson 02:25 PM HR=58 bpm, FUPN=576/60 mmhg, SpO2=95.0 %, Resp=18 B/min 02:26 PM Time: 14:25 Heparin 3000 units Intra Arterial Given by Prashant Cuenca MD twilson 02:27 PM HR=57 bpm, KVHY=711/64 mmhg, SpO2=96.0 %, Resp=17 B/min 02:28 PM Lesion found in Proximal RCA. Pre Stenosis: 100 Pre MARCO ANTONIO Flow: 0: No Flow/No perfusion twilson 02:28 PM Right Coronary, Right Posterior Descending Arteries with Right Posterolateral and Acute Marginal branches with 100 % stenosis. If graft is supplying this area, 0 % stenosis twilson 02:29 PM HR=57 bpm, RMCY=811/54 mmhg, SpO2=98.0 %, Resp=13 B/min 02:29 PM Time: 14:29 Heparin 1700 units Intra Arterial Given by Prashant Cuenca MD twilson 02:30 PM Time: 14:29 Heparin 19.4 ml/hr Intravenous Given by Bianca Nesbitt RN Flannery pump twilson 02:31 PM HR=58 bpm, GNTG=003/58 mmhg, SpO2=97.0 %, Resp=20 B/min 02:31 PM Time: 14:16 Patient comfortable and pain free: Yes twilson 02:33 PM HR=59 bpm, DTMA=577/56 mmhg, SpO2=96.0 %, Resp=22 B/min 02:33 PM Physician reviewing films. twilson 02:33 PM DP pulse palpated 2+ twilson 02:35 PM HR=58 bpm, LUVO=933/64 mmhg, SpO2=94.0 %, Resp=18 B/min 02:37 PM HR=59 bpm, FXBC=918/64 mmhg, SpO2=99.0 %, Resp=20 B/min 02:39 PM HR=58 bpm, KAPL=571/61 mmhg, SpO2=98.0 %, Resp=16 B/min 02:40 PM Heparin drip D/C. twilson 02:41 PM HR=58 bpm, JBBD=128/60 mmhg, SpO2=96.0 %, Resp=16 B/min 02:42 PM ACT drawn. twilson 02:42 PM Time: 13:16LOC: 4 = Oriented but drowsy twilson 02:43 PM HR=57 bpm, HJIY=727/56 mmhg, SpO2=99.0 %, Resp=16 B/min 02:45 PM Lesion found in Proximal LAD. Pre Stenosis: 50 Pre MARCO ANTONIO Flow: 3: Complete and Brisk Flow/Perfusion twilson 02:45 PM Proximal Left Anterior Descending Coronary Artery with 50% stenosis. If graft is supplying this territory, 0 % stenosis. twilson 02:45 PM HR=57 bpm, DUGV=653/60 mmhg, SpO2=96.0 %, Resp=16 B/min 02:46 PM Physician consulting with Dr. Ferris. twilson 02:46 PM Time: 14:31 Patient comfortable and pain free: Yes twilson 02:46 PM Procedure completed at 14:46 twilson 02:47 PM HR=58 bpm, XIWL=261/57 mmhg, SpO2=95.0 %, Resp=19 B/min 02:48 PM Sign out completed: Radiation Dose 566.4 mGy Fluoro Time: 18.8 Isovue 370 - 200ml contrast 156 ml given by Prashant Cuenca MD, [facility]. Complications: NoneCardiac Rehab Consult needed: YesConfirmed administered medications: Yes twilson 02:48 PM Isovue 370 - 200ml,1 Bottle(s) used. twilson 02:48 PM Sheath left in place to be pulled on floor/holding areaV+Pad twilson 02:48 PM ACT is greater than 400. twilson 02:49 PM Post ECG NSR twilson 02:49 PM Post Blood Pressure 117/57 twilson 02:49 PM Opsite applied to left groin with slight oozing. twilson 02:49 PM HR=57 bpm, KQEE=665/64 mmhg, SpO2=95.0 %, Resp=13 B/min 02:50 PM 14:49 Post Pulses Bilateral DP 2+ twilson 02:50 PM Information taught Cardiac Cath twilson 02:50 PM Education needs Procedure, Plan of Care, and Responsibilities of Patient in Care twilson 02:50 PM Learning barriers :None twilson 02:50 PM Education Methods Verbal twilson 02:50 PM Education evaluation Able to repeat information twilson 02:51 PM Site status No bleeding/hematoma - Lt Groin as reported by Cayla Montalvo RT (R) at 14:51 twilson 02:51 PM Opsite applied twilson 02:51 PM Family placed in consult room. twilson 02:51 PM Vitals capture stopped. 02:53 PM 14:53 Post Pulses Bilateral DP 2+ twilson 02:58 PM Time: 14:42LOC: 4 = Oriented but drowsy twilson 03:01 PM Time: 14:46 Patient comfortable and pain free: Yes twilson 03:02 PM Report given to Iron FREEMAN Pt taken to Holding room Room #3. 15:02 twilson 03:03 PM Delay to floor Yes, dirty room. twilson 03:03 PM Patient will go to 2N7 when the room is ready and will recover in the holding room until then. twilson 03:10 PM 16F Tineo catheter inserted, sterile technique maintained, single attempt, catheter placement verified by 200 mls clear urine. twilson 03:13 PM Patient out of room: 15:13 twilson 04:10 PM Report called to Divya. Dr. Garay at bedside mprater 04:[address] Garay in to see patient and speak with her and her mother. estevan 04:53 PM Left femoral venous and arterial sheaths pulled. Manual pressure per Iron Meza RN mprater 05:11 PM Hemostasis obtained to left femoral and venous sites. Manual pressure held for 17 minis. Dressing with opsite d/i. Patient educated on post sheath pull. Patient verbalized understanding. mprater 05:12 PM Report update called to Divya FREEMAN. mprater 05:14 PM Delay to floor Bed availability mprater 05:14 PM Complications: None mprater 05:14 PM Patient out of room: 17:14 mprater Complications Complication None None Hemodynamics Pressures Site Systolic/A Wave Diastolic/V Wave Mean AO 85 54 69 AO 83 54 67 LV 115 3 9 LV 96 1 6 AO 95 43 66 AO 83 60 71 PCW 22 20 18 MPA 43 31 38 MPA 44 18 31 RV 39 6 6 RA 16 14 13 Oximetry Site Saturation PA 69.1 PA 69.1 FEM_ART 94 FEM_ART 94 RA 61.4 RA 61.4 Cardiac Output 3.8 l/min Cardiac Index 2.17 l/min/m2 Post Procedure Information Blood Pressure: 117/57 mmHg Rhythm: NSR Post procedural instructions were given Site Checks Time Location Status Staff Sheath In? Note 02:51 PM Lt Groin No bleeding/hematoma Cayla Montalvo RT (R) Yes 03:15 PM Lt Groin No bleeding/ No Hematoma Iron Meza RN Yes 03:30 PM Lt Groin No bleeding/ No Hematoma Iron Meza RN Yes 03:45 PM Lt Groin No bleeding/ No Hematoma Iron Meza RN Yes 04:00 PM Lt Groin No bleeding/ No Hematoma Ursula Posada RN Yes 04:15 PM Lt Groin No bleeding/ No Hematoma Ursula Posada RN Yes 04:30 PM Lt Groin No bleeding/ No Hematoma Ursula Posada RN Yes 04:45 PM Lt Groin No bleeding/ No Hematoma Iron Meza RN Yes 05:00 PM Lt Groin No bleeding/ No Hematoma Iron Meza RN 05:15 PM Lt Groin No bleeding/ No Hematoma Iron Meza RN Pulses Time Site Pre-Procedure Post-Procedure Note 11/24/2016 12:30:00 PM Bilateral DP \\T\\ PT 2+ 11/24/2016 12:30:00 PM Bilateral radial 2+ 2:49:00 PM Bilateral DP 2+ 2:53:00 PM Bilateral DP 2+ 11/24/2016 3:15:00 PM Bilateral DP 2+ 11/24/2016 3:30:00 PM Bilateral DP 2+ 11/24/2016 3:45:00 PM Bilateral DP 2+ 11/24/2016 4:00:00 PM Bilateral DP 2+ 11/24/2016 4:30:00 PM Bilateral DP 2+ 11/24/2016 4:45:00 PM Bilateral DP 2+ 11/24/2016 5:00:00 PM Bilateral DP \\T\\ PT 2+ Updated by Minnie Rae RT (R) on 11/25/2016 8:43:14 AM Minnie Rae RT electronically signed on 11/25/2016 8:44:03 AM with status of Final
[2016-11-25] MEDS ORDERED: Aspirin 81 MG TAB.CHEW PO SCH (09:00)
--- NOTE | 2016-11-25 09:27 | Cardiology Progress Note ---
Addendum entered and electronically signed by Sundeep Chavez DO 11/25/16 11: 08: Correction to plan: The patient had repeat echo which revealed trace MR. Due to resolution in symptoms and improvement of MR, we will suggest discharging the patient at this time. We recommend the patient be discharged on daily Lisinopril 2.5 mg, Coreg 3.124 mg BID, and 20 mg Lasix daily. She will also need to be anti-coagulated and we recommend Eliquis 5 mg BID. We will have the patient follow-up in outpatient cardiology office in 1-2 weeks. We do not feel as though this is a need for emergent transfer to [facility] and can follow-up outpatient. Original Note: <Sundeep Chavez - Last Filed: 11/25/16 09:35> Date of Encounter: 11/25/16 Time of Encounter: 09:24 Assessment and Plan (1) Acute respiratory failure with hypoxia Current Visit: Yes Status: Acute Patient to be transferred to [facility] today Coronary disease present on cath. No stent placed at that time. Severe MR noted. CT surgery recommended transferring patient to [facility] for replacement. Medical management of left femoral artery thrombus. Continued heparin drip. (2) CHF (congestive heart failure) Current Visit: Yes Status: Acute Qualifiers: Congestive heart failure type: unspecified congestive heart failure type Congestive heart failure chronicity: acute Qualified Code(s): I50.9 - Heart failure, unspecified (3) Pleural effusion Current Visit: Yes Status: Acute (4) Severe mitral regurgitation Current Visit: Yes Status: Acute Management as above. (5) Femoral popliteal artery thrombus Current Visit: Yes Status: Acute Continue heparin for thrombus. Discussion w patient/family: The assessment and plan as outlined above was discussed with the patient and/or family members who expressed understanding and agreement. All questions were answered. Thank you for involving us in the care of your patient. Please call with any questions. Subjective Principal diagnosis: Dyspnea Interval history: Patient respiratory status improved. Cardiac cath revealed some coronary disease without stent placement. In addition, the patient was found to have a left femoral artery thrombus. CT surgery consulted on the patient and recommended transfer given patient's medical status. Vascular surgery consulted for the thrombus without any surgical recommendation. Objective Vital Signs, Last 4 Hours Temp Pulse Resp BP Pulse Ox 11/25/16 07:06 97.9 F 60 16 99/60 92 L General: Conversant, No Apparent Distress HEENT: Atraumatic, Normocephaly, Mucus Membranes Moist Neck: No JVD, Normal carotid pulses Cardiac: Reg Rate and Rhythm, Normal S1 and S2, Other (Mild systolic murmur) Lungs: Other (Coarse breath sounds with mild diffuse wheezing) Neuro: Alert and responsive, No focal deficits noted Abdomen: Soft, Non-Tender Skin: No rashes noted on visualized skin Musculoskeletal: No Chest Wall Tenderness Extremities: No Clubbing, No Cyanosis, No Edema, Normal Pulses Results 11/25/16 03:01 11/25/16 03:01 Lab Results 11/24/16 11/24/16 11/25/16 10:07 19:35 03:01 WBC 10.4 Hgb 11.9 D Hct 37.1 Plt Count 394 INR 1.2 1.3 APTT 29.8 Sodium Potassium Chloride Carbon Dioxide BUN Creatinine Glucose Calcium Magnesium 11/25/16 11/25/16 03:01 03:01 WBC Hgb Hct Plt Count INR APTT 40.2 H Sodium 137 Potassium 3.3 L Chloride 99 Carbon Dioxide 27 BUN 15 Creatinine 0.80 Glucose 128 H Calcium 8.6 Magnesium 1.7 - Imaging and Cardiology Cardiac cath: report reviewed Consult Discharge Plan - Plan Referrals: Bhanu Moody DO [Primary Care Provider] - 12/05/16 3:30 pm (Please follow up as schedule..) - Attending Attestation I examined this patient and my medical decision-making was reviewed with the Resident Physician. I agree with the documented findings, disposition and treatment plan as described except to the extent set forth below. <Amol Wylie G - Last Filed: 11/25/16 12:05> Assessment and Plan Discussion w patient/family: The assessment and plan as outlined above was discussed with the patient and/or family members who expressed understanding and agreement. All questions were answered. Thank you for involving us in the care of your patient. Please call with any questions. Objective Vital Signs, Last 4 Hours Temp Pulse Resp BP Pulse Ox 11/25/16 11:43 98.0 F 64 18 84/61 98 11/25/16 10:15 94/58 11/25/16 10:02 57 99/55 94 L Results 11/25/16 03:01 11/25/16 03:01 Lab Results 11/24/16 11/25/16 11/25/16 19:35 03:01 03:01 WBC 10.4 Hgb 11.9 D Hct 37.1 Plt Count 394 INR 1.3 APTT 29.8 Sodium 137 Potassium 3.3 L Chloride 99 Carbon Dioxide 27 BUN 15 Creatinine 0.80 Glucose 128 H Calcium 8.6 Magnesium 1.7 11/25/16 11/25/16 03:01 10:09 WBC Hgb Hct Plt Count INR APTT 40.2 H 68.4 H D Sodium Potassium Chloride Carbon Dioxide BUN Creatinine Glucose Calcium Magnesium Attestation Statement - Attestation Attestation: I examined this patient and my medical decision-making was reviewed with the CAR WASH ATTENDANT/PA/Advanced Practice Nurse/Resident Physician. I agree with the documented findings, disposition and treatment plan as described except to the extent set forth below. Pt feels better, less sob, no pnd, cough VSS JVD: 6-7 cm Chest: clear CVS: no s3 echo reviewed by me shows: mild MR , ef 50%, mild TR ok for d/c- MR is much better f/up with Cardiology in 2-3 weeks cont present CHF meds Thanks
[2016-11-25] MEDS: clonazePAM 1 MG TABLET PO SCH ×2 (09:42→14:14)
[2016-11-25] MEDS: FLUoxetine 20 MG CAPSULE PO SCH (09:43)
[2016-11-25] MEDS: Nicotine 14 MG PATCH.TD24 TD SCH (09:43)
--- NOTE | 2016-11-25 11:54 | Discharge Summary ---
- Discharge Diagnosis (1) Acute respiratory failure with hypoxia Status: Acute (2) Acute diastolic (congestive) heart failure Status: Acute (3) Severe mitral regurgitation Status: Acute (4) Moderate tricuspid regurgitation Status: Acute (5) Moderate to severe pulmonary hypertension Status: Acute (6) Femoral popliteal artery thrombus Status: Acute (7) Pleural effusion Status: Acute (8) Hypomagnesemia Status: Resolved (9) COPD (chronic obstructive pulmonary disease) Status: Chronic Qualifiers: COPD type: chronic bronchitis Chronic bronchitis type: mixed simple and mucopurulent Qualified Code(s): J41.8 - Mixed simple and mucopurulent chronic bronchitis (10) CAD (coronary artery disease) Status: Chronic Qualifiers: Coronary Disease-Associated Artery/Lesion type: [place] artery [place] vs. transplanted heart: [place] heart Associated angina: with unspecified angina Qualified Code(s): I25.119 - Atherosclerotic heart disease of [place] coronary artery with unspecified angina pectoris (11) Bipolar 1 disorder Status: Chronic (12) Tobacco abuse Status: Chronic - Discharge Medications Home Medications: ClonazePAM [Klonopin] 1 mg PO TID PRN 11/22/16 [History] FLUoxetine HCl [Prozac] 40 mg PO BID 11/22/16 [History] Pravastatin Sodium 20 mg PO DAILY 11/22/16 [History] Acetaminophen/Butalbital/Caffe [Fioricet] 1 tab PO Q6HR PRN 11/23/16 [History] Quetiapine Fumarate [Seroquel Xr] 300 mg PO DAILY 11/23/16 [History] Albuterol Neb [Proventil Neb] 2.5 mg IH Q2H PRN #0 inhsol 11/25/16 [Rx] Aspirin 81 mg PO DAILY tab.chew 11/25/16 [Rx] Carvedilol [Coreg] 3.125 mg PO BIDWM tablet 11/25/16 [Rx] Furosemide [Lasix] 40 mg IVP BID vial 11/25/16 [Rx] Lisinopril [Zestril] 2.5 mg PO DAILY tablet 11/25/16 [Rx] Nicotine Patch [Nicoderm] 14 mg TD DAILY patch.td24 11/25/16 [Rx] TraZODone 100 mg PO HS tablet 11/25/16 [Rx] Allergies/Adverse Reactions: Allergies acetaminophen [From Vicodin] Allergy (Verified 11/23/16 09:15) Hives codeine Allergy (Verified 11/23/16 09:15) Hives hydrocodone [From Vicodin] Allergy (Verified 11/23/16 09:15) Hives morphine Allergy (Verified 11/23/16 09:15) Hives Procedures/tests Complete & Pending: Procedures Performed prior 72 hours Category Date Time Status CL Cardiac Catheterization [CL] Routine Traffic Expert 11/24/16 09:24 Completed ECG 12 lead ECG [ECG] Routine Y 11/23/16 08:56 Completed EV echocardiogram Routine Y 11/23/16 23:11 Completed EV limited echocardiogram Stat Y 11/25/16 10:12 Ordered Date of admission: 11/22/16 21:34 Primary care physician: Bhanu Moody Consults: 11/22/16 23:27 Consult to Cardiology [CONS] Routine Comment: Consulting Provider: Cardiology [facility] Reason for Consult: CHF- new onset Time Notified: 23:28 Call Completed: No 11/24/16 14:22 Consult to Cardiothoracic Surgery [CONS] Routine Consulting Provider: Cardiothoracic Surgery [place] Reason for Consult: Severe mitral regurgitation Time Notified: 14:23 Call Completed: Yes 11/24/16 17:05 Consult to Vascular Surgery [CONS] Routine Consulting Provider: Vascular Surgery [facility] 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 Cevallos is a 51 year old female - Time Spent with Patient Total time spent providing and/or coordinating discharge services: - Constitutional Vitals: Temp Pulse Resp BP Pulse Ox 97.9 F 57 16 94/58 94 L 11/25/16 07:06 11/25/16 10:02 11/25/16 07:06 11/25/16 10:15 11/25/16 10:02 General appearance: Present: cooperative, A&O X 3, pleasant, no acute distress, answers questions appropriately
--- NOTE | 2016-11-25 12:11 | ECHO - Doppler Report ---
Limited Echocardiogram Name: Clemencia Cevallos Date of Study: 11/25/2016 Date: 1965 Ht: 67.0 in Medical Record#: [id number] Age: 51 Wt: 148.0 lb Gender: Female BSA: 1.78 Order #: [id number] Location: [facility] Room #: 2N7 Reading Physician: Cuate Jackman DO, FACC, FASE, FASNC Change Control Manager: Elinor Diaz RVT Ordering Physician: Sundeep Chavez DO Primary Physician: Bhanu Moody DO Indications: Evaluation for MR Impressions: Mildly thickened mitral valve leaflets. Trace mitral regurgitation. Previously described severe mitral regurgitation was not seen on this limited study. Left Ventricular Wall Motion: Rest Echo Findings All wall segments showed normal motion. Findings: Study Quality * Technically adequate exam. ECG Findings * Sinus rhythm with BBB. Left Ventricle * LVEF 60-65%. * Normal LV chamber size, wall thickness and function. * Atypical septal motion consistent with bundle branch block. Mitral Valve * Mildly thickened mitral valve leaflets. * Trace mitral regurgitation. * No mitral stenosis. History Hypercholesteremia History of Smoking Years 25 Packs 1 Family History of CAD 11/23/2016 a Previous Echo was performed. Measurements: BP: 94/ 58 2D Normal Values RVIDd: 1.38 cm <2.7 cm IVSd: .84 cm 0.6 - 1.0 cm LVIDd: 4.39 cm 3.7 - 5.6 cm LVPWd: .84 cm 0.6 - 1.1 cm LVIDs: 3.03 cm 1.5 - 3.6 cm LA: 4.10 cm 2.0 - 4.0cm %FS: 31.00 cm >25 % LA volume: Updated by Cuate Jackman DO, FACC, FASE, FASNC on 11/25/2016 12:05:33 PM electronically signed on 11/25/2016 12:06:11 PM with status of Final Wall Motion [place]: 1=Normal, 2=Hypokinesis, 3=Akinesis, 4=Dyskinesis, 5=Aneurysmal, 6=Hyperkinetic, X=Not Visualized (Blank)=Missing
[2016-11-25 14:09] VITALS: BP 72/43
--- NOTE | 2016-11-25 16:21 | Vascular/[facility] Progress Note ---
Date of Encounter: 11/25/16 Time of Encounter: 15:30 - Assessment and plan (1) Femoral popliteal artery thrombus Current Visit: Yes Status: Acute The patient remains asymptomatic from the right femoral sheath thrombus. She continues on intravenous heparin. It is noted that the patient is going to be referred to [facility] and the patient had developed hypotension. From the femoral puncture site issue she has had no complication and is doing well. No further follow-up for this is recommended. The patient is welcome to return to the vascular surgery clinic on a when necessary basis. - Subjective Interval history: The patient is seen in follow-up today from the consultation last night. Patient had developed thrombus around the left femoral sheath for her cardiac catheterization. She had no symptoms overnight. She is feeling well. The patient denies any paresthesias of the left lower extremity or left foot. Vital Signs, Last 4 Hours Pulse BP Pulse Ox 11/25/16 14:08 58 72/43 11/25/16 13:46 62/40 11/25/16 12:27 95 - Physical Examination General: Present: Conversant, No Apparent Distress HEENT: Present: Atraumatic Cardiac: Present: Reg Rate and Rhythm Neuro: Present: Alert and responsive, No focal deficits noted Vascular: Present: Normal capillary refill, Pulse, normal, Color/Temperature ( The patient has normal color and temperature of both feet.). Absent: Cyanosis, Edema Skin: Present: No rashes noted on visualized skin Results 11/25/16 03:01 11/25/16 03:01 Lab Results, Last 24 hours 11/24/16 11/25/16 11/25/16 19:35 03:01 03:01 WBC 10.4 Hgb 11.9 D Hct 37.1 Plt Count 394 INR 1.3 APTT 29.8 Sodium 137 Potassium 3.3 L Chloride 99 Carbon Dioxide 27 BUN 15 Creatinine 0.80 Glucose 128 H Calcium 8.6 Magnesium 1.7 11/25/16 11/25/16 03:01 10:09 WBC Hgb Hct Plt Count INR APTT 40.2 H 68.4 H D Sodium Potassium Chloride Carbon Dioxide BUN Creatinine Glucose Calcium Magnesium Consult Discharge Plan - Plan Instructions: Heart Failure (DC) Additional Instructions: RISK FACTORS: STOP SMOKING: If you smoke, STOP. Smoking or tobacco use significantly increases your risk of heart disease because nicotine causes the arteries to narrow or constrict. It also causes fats to stick to the artery. Your chances of having a heart attack are greatly increased if you continue to smoke. For more information, call the education line for smoking cessation 9-085-SFMVGMI EAT A LOW FAT/CHOLESTEROL/SODIUM DIET: This diet may help reduce your chances of having a heart attack. LIFTING: Avoid lifting anything more than 10 pounds for 5-7 days Prior to straining, laughing, sneezing and/or coughing, apply manual pressure directly over insertion site. ACTIVITY: You may walk or climb stairs as tolerated You can resume sexual activity as tolerated In general, you are encouraged to engage in a minimum of 30 minutes or more of moderate intensity physical activity, such as brisk walking, daily or at least 3 -4 times weekly BATHING Do not submerge the site into water (bath tub, hot tub, swimming pool) for 1 week. This can be a source for infection into the blood stream. You may shower after 24 hours SITE CARE: After 24 hours, you may remove the dressing and leave the site open to air. Keep the site clean and dry. Clean gently and pat dry. You can expect bruising and tenderness that gradually resolve within a week or two. Return to work as instructed per your physician Resume driving as instructed per physician Keep all scheduled follow up appointments Resume medications as instructed IMPORTANT: If prescribed a Platelet Aggregation Inhibitor such as, Plavix, Brilinta or Effient: Duration of therapy is minimum one year These medications are often used in combination with Aspirin in prevention of future heart attacks Never discontinue unless consult with your Sulfur Chloride Operator STROKE (CVA) Risk factors for a stroke are: Age, cigarette smoking, diabetes, excessive alcohol consumption, family history, high blood pressure, overweight, physical inactivity, prior stroke, heart attack, diagnosis of carotid artery stenosis or other artery disease. Warning signs: Sudden numbness or weakness of the face, arm or leg; especially on one side of the body, sudden confusion, trouble speaking or understanding, sudden trouble seeing in one or both eyes, sudden trouble walking, dizziness, loss of balance or coordination, sudden severe headache with no cause. Call 911 or go to the Emergency Room. CONGESTIVE HEART FAILURE: If you have been diagnosed with Congestive Heart Failure (CHF) and your symptoms return, make an appointment with your physician Weigh yourself daily. Notify your physician if you have a weight gain of two or more pounds in one day or five or more pounds in one week. If you experience any difficulty breathing, please call 911 BLEEDING: Although the risk of bleeding is minimal, it can happen. If you have any bleeding from the site, apply firm pressure above the puncture site for 10-15 minutes. If the bleeding does not stop, continue manual pressure and call 911 Contact your physician if: You develop a fever greater than 101 degrees Fahrenheit Your site becomes reddened or has any drainage You have an increase in pain or burning at the site or if a large knot forms at the site. If you experience chest pain, shortness of breath, dizziness, or extreme tiredness, stop the activity and rest. Please notify your physicians office if you experience any of these symptoms and they are not relieved by rest please call 911! Referrals: Bhanu Moody DO [Primary Care Provider] - (patient went to [facility] no PCP appointment needed)
[2016-11-25] MEDS ORDERED: Furosemide 20 MG TABLET PO SCH (18:00)
== END 2016-11-25 15:53 | disposition critical access hospital (66) | DRG 286 ==
LOC: 2ANU 17:45 → EMEROO 17:45 → 2ANU 21:58 → 2NENU 11-24 14:46 → 2NNU 11-24 14:49
PROVIDERS: ADMIT Internal Medicine; ATTEND Internal Medicine

== ENCOUNTER 2018-09-29 17:08 | Observation (INO) ==
[2018-09-29] MEDS ORDERED: Naloxone 0.4 MG/ML INJ IVP PRN (21:48)
[2018-09-29] MEDS ORDERED: Ondansetron 4 MG/2 ML VIAL IVP PRN (21:48)
[2018-09-29] MEDS ORDERED: traMADol 50 MG TABLET PO PRN (21:48)
--- NOTE | 2018-09-29 21:48 | Internal Med History&Physical ---
Date of Encounter: 09/29/18 Internal Medicine - H&P: HPI History of present illness: Ms. Cevlalos is a 52 year old female Past Med Surg Social Fam HX - Past Medical History Medical history: CHF, COPD, coronary artery disease, hyperlipidemia, liver disease, valvular heart disease Additional medical history: SMOKER Psychiatric history: anxiety, depression - Past Surgical History Surgical History: cholecystectomy, hysterectomy, other Additional surgical history: TUBAL LIGATION. BLADDER. HEART STENT - Social History Smoking Status: Former smoker Smokeless Tobacco Status: No Alcohol use: none Drug use: none - Family History Mother Living Status: Still Living Hx Family Cardiac Disorders: No Hx Family Respiratory Disorders: No Hx Family Cancer: No Hx Family GI Disorders: No Hx Family Endocrine Disorder: No Hx Family Neuromuscular Disorders: No Hx Family Neurologic Disorders: No Hx Family HEENT Disorders: No Hx Family Autoimmune Disorders: No Father Living Status: Hx Family Cardiac Disorders: Yes ([place] age 47, CABG age 56, passed due to complications of CABG) Internal Medicine - H&P: Meds FLUoxetine HCl [Prozac] 40 mg PO BID 11/22/16 [History] Pravastatin Sodium 20 mg PO DAILY 11/22/16 [History] Aspirin 81 mg PO DAILY tab.chew 11/25/16 [Rx] traZODone [TraZODone] 100 mg PO HS tablet 11/25/16 [Rx] Allergy/AdvReac Type Severity Reaction Status Date / Time acetaminophen [From Vicodin] Allergy Hives Verified 02/20/18 12:38 codeine Allergy Hives Verified 02/20/18 12:38 hydrocodone [From Vicodin] Allergy Hives Verified 02/20/18 12:38 morphine Allergy Hives Verified 02/20/18 12:38 All Systems PM: A 10-system review of systems was performed and is negative for pertinent findings except as documented above in the HPI. - Constitutional Vitals: Temp Pulse Resp BP Pulse Ox 98.2 F 52 14 139/81 95 09/29/18 19:00 09/29/18 19:00 09/29/18 19:00 09/29/18 19:00 09/29/18 19:00 - Assessment and plan (1) New onset seizure Current Visit: Yes Status: Acute (2) CHF (congestive heart failure) Current Visit: No Status: Acute Qualifiers: Qualified Code(s): I50.9 - Heart failure, unspecified (3) Tobacco abuse Current Visit: No Status: Chronic (4) Bipolar 1 disorder Current Visit: No Status: Chronic (5) DVT prophylaxis Current Visit: No Status: Acute (6) Moderate to severe pulmonary hypertension Current Visit: No Status: Acute (7) COPD (chronic obstructive pulmonary disease) Current Visit: No Status: Chronic Qualifiers: COPD type: chronic bronchitis Chronic bronchitis type: mixed simple and mucopurulent Qualified Code(s): J41.8 - Mixed simple and mucopurulent chronic bronchitis (8) CAD (coronary artery disease) Current Visit: No Status: Chronic Qualifiers: Coronary Disease-Associated Artery/Lesion type: [place] artery [place] vs. transplanted heart: [place] heart Associated angina: with unspecified angina Qualified Code(s): I25.119 - Atherosclerotic heart disease of [place] coronary artery with unspecified angina pectoris (9) Severe mitral regurgitation Current Visit: No Status: Acute (10) Moderate tricuspid regurgitation Current Visit: No Status: Acute - Time Spent With Patient Total time spent is greater than 50% in coordination of care (as documented) at patient's floor/unit and/or counseling patient:
[2018-09-29 22:32] LABS: Hematocrit 42.4 % (35.3-44.9); Hemoglobin 13.8 g/dL (11.5-15.4); Mean Corpuscular HGB Conc 32.5 g/dL (31.6-35.5); Mean Corpuscular Hemoglobin 30.5 pg (28.0-33.3); Mean Corpuscular Volume 93.8 fL (83.0-100.0); Mean Platelet Volume 9.3 fL (9.4-12.4); Platelet Count 295 K/mcL (140-400); Red Blood Count 4.52 M/mcL (3.82-4.97); Red Cell Distribution Width 14.9 % (11.5-14.5)
[2018-09-29 22:43] LABS: Prothrombin Time 11.8 Seconds (9.4-12.1)
[2018-09-29 22:46] LABS: Activated Partial Thrombo Time 29.6 Seconds (26.0-36.0)
[2018-09-29 22:48] LABS: Alanine Aminotransferase 22 Units/L (7-52); Albumin 3.8 g/dL (3.5-5.7); Albumin/Globulin Ratio 1.4 (1.1-2.2); Alkaline Phosphatase 101 Units/L (34-104); Aspartate Amino Transferase 30 Units/L (13-39); BUN/Creatinine Ratio 17 (6-26); Bilirubin,Total 0.7 mg/dL (0.3-1.0); Blood Urea Nitrogen 11 mg/dL (6-20); Calcium 9.2 mg/dL (8.6-10.3); Carbon Dioxide 21 mEq/L (23-29); Chloride 107 mEq/L (98-107); Globulin 2.7 g/dL (2.4-3.5); Glucose 109 mg/dL (70-105); Magnesium 2.1 mg/dL (1.6-2.6); Osmolality,Calculated 284 (280-300); Phosphorous 3.4 mg/dL (2.7-4.5); Potassium 3.7 mEq/L (3.5-5.1); Sodium 137 mEq/L (136-145); Total Protein 6.5 g/dL (6.4-8.9); eGFR For Non-African Americans > 60 (> 60)
[2018-09-30] MEDS ORDERED: Ibuprofen 400 MG TABLET PO PRN (00:54)
[2018-09-30] MEDS ORDERED: *HR* LORazepam 2 MG/ML VIAL IVP PRN (00:56)
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
[2018-09-30] MEDS ORDERED: ALPRAZolam 1 MG TABLET PO PRN (02:48)
[2018-09-30 06:35] LABS: Chol/HDL Ratio 6.7 (0-4.9)
[2018-09-30 06:37] LABS: Alanine Aminotransferase 25 Units/L (7-52); Albumin 3.6 g/dL (3.5-5.7); Albumin/Globulin Ratio 1.4 (1.1-2.2); Alkaline Phosphatase 95 Units/L (34-104); Aspartate Amino Transferase 37 Units/L (13-39); BUN/Creatinine Ratio 19 (6-26); Bilirubin,Total 0.7 mg/dL (0.3-1.0); Blood Urea Nitrogen 13 mg/dL (6-20); Calcium 9.1 mg/dL (8.6-10.3); Carbon Dioxide 21 mEq/L (23-29); Chloride 109 mEq/L (98-107); Globulin 2.6 g/dL (2.4-3.5); Glucose 99 mg/dL (70-105); Magnesium 2.2 mg/dL (1.6-2.6); Osmolality,Calculated 288 (280-300); Potassium 3.8 mEq/L (3.5-5.1); Sodium 139 mEq/L (136-145); Total Protein 6.2 g/dL (6.4-8.9); eGFR For Non-African Americans > 60 (> 60)
[2018-09-30] MEDS: *HR* Heparin 5,000 UNIT/ML VIAL SQ SCH ×2 (07:45→18:59)
[2018-09-30 09:57] LABS: Bilirubin,Urine Negative (Negative); Blood,Urine Negative (Negative); Clarity,Urine Clear (Clear); Color,Urine Yellow (Yellow); Glucose,Urine (UA) Normal (Normal); Ketones,Urine Negative (Negative); Leukocyte Esterase,Urine Negative (Negative); Nitrite,Urine Negative (Negative); Protein,Urine Negative (Neg-Trace); Specific Gravity,Urine 1.012 (1.010-1.025); Urobilinogen,Urine Normal (Normal)
[2018-09-30] MEDS: Aspirin 81 MG TAB.CHEW PO SCH (10:05)
[2018-09-30] MEDS: FLUoxetine 20 MG CAPSULE PO SCH ×2 (10:05→21:37)
[2018-09-30] MEDS ORDERED: (Rizatriptan Benzoate [Maxalt] 10 MG) PO PRN (14:27)
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
[2018-09-30] MEDS: Gabapentin 300 MG CAPSULE PO SCH ×2 (14:52→21:37)
[2018-09-30] MEDS: ALPRAZolam 1 MG TABLET PO SCH ×2 (16:56→21:37)
[2018-09-30] MEDS: Budesonide/Formoterol 160/4.5 1 PUFF INH IH SCH (20:08)
[2018-09-30] MEDS: traZODone 50 MG TABLET PO SCH (21:37)
[2018-10-01] MEDS: *HR* Heparin 5,000 UNIT/ML VIAL SQ SCH ×2 (06:53→18:20)
[2018-10-01] MEDS: Budesonide/Formoterol 160/4.5 1 PUFF INH IH SCH ×2 (07:49→21:05)
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
[2018-10-01] MEDS: Gabapentin 300 MG CAPSULE PO SCH ×3 (09:44→20:34)
[2018-10-01] MEDS: Aspirin 81 MG TAB.CHEW PO SCH (09:44)
[2018-10-01] MEDS: ALPRAZolam 1 MG TABLET PO SCH ×4 (09:44→20:34)
[2018-10-01] MEDS: FLUoxetine 20 MG CAPSULE PO SCH ×2 (09:44→20:34)
--- NOTE | 2018-10-01 14:09 | Internal Med Progress Note ---
Hospitalist Progress Note - Encounter Date of Encounter: 10/01/18 Time of Encounter: 14:08 - Subjective Interval History: Patient denies chest pain shortness of breath loss of consciousness seizure headache dizziness abdominal pain diarrhea urinary complaint. EEG report is pending. Reviewed bank consultant notes. - Exam Vitals: Temp Pulse Resp BP Pulse Ox 97.8 F 45 15 114/60 96 10/01/18 07:02 10/01/18 07:02 10/01/18 07:50 10/01/18 07:02 10/01/18 10:03 Exam: Gen.: Vitals noted. No acute distress. resting comfortably in bed. HEENT: PERRL/EOMI, oropharynx clear, Normocephalic, atraumatic, MMM Cardiac: RRR, no murmur, +S1/S2, No BLE edema Pulmonary: CTA bilaterally, no wheezes, rales or rhonchi, Abdomen: soft, nontender, BS noted, no guarding, no palpable HSM Skin: warm and dry, no visible lesions. MSK: ROM intact, no joint swelling noted. Non tender calf or clubbing. Muscle strength 5/5 in all extremities. Neuro: A&Ox3, moves all extremities, no focal deficits, sensation intact, cranial nerves 2-12 intact - Assessment and Plan (1) New onset seizure Current Visit: Yes Status: Acute Assessment and Plan: Witnessed by family member. No active seizure. CT head with no acute process. MRI with no acute finding. EEG report is awaited. Continue seizure prophylaxis. Neurologist on board. Ativan when necessary. Patient had recent brain bleed questionable subarachnoid hemorrhage 3 weeks ago after fall and got admitted in [facility] and discharged home with instruction to follow at [facility] in 2 weeks-no details available but requested records from [facility], is still awaiting. She also started Chantix 3-4 weeks ago and think could be leading seizure. No previous history of seizure. Possible discharge tomorrow after getting cleared from neurologist and cardiology (2) Bipolar 1 disorder Current Visit: Yes Status: Chronic Assessment and Plan: Stable. Continue home medicine (3) DVT prophylaxis Current Visit: Yes Status: Acute Assessment and Plan: Heparin subcutaneous (4) Moderate tricuspid regurgitation Current Visit: No Status: Acute Assessment and Plan: Stable. Pump And Still Operator's on board (5) COPD (chronic obstructive pulmonary disease) Current Visit: No Status: Chronic Assessment and Plan: Stable. Does not appear in acute exacerbation (6) CAD (coronary artery disease) Current Visit: Yes Status: Chronic Assessment and Plan: Status post PCI at [facility] in November 2016. Continue aspirin and statin. No beta reji due to hypotension and bradycardia (7) Sinus pause Current Visit: Yes Status: Acute Assessment and Plan: 3 positive noted on telemetry bed where more than 3 seconds. In having the concern for loss of consciousness with syncope versus possible seizure activity, machined parts metal sprayer advice to monitor her overnight and review telemetry tomorrow for possible pauses. Patient may need consider inpatient EP evaluation for PPM if recurrence of pauses more than 3 seconds. Pump And Still Operator's on board. A avoid AV chino blockers (8) WPW (Kuqxr-Hmacdbryc-Xymzm syndrome) Current Visit: Yes Status: Chronic Assessment and Plan: Chronic. Previously followed at [facility] and declined elevation. Cardiology on board. History of valvular disease on TTE done at [facility] in November 2016 with EF 55% moderate LAD and mild MR. Recent echo EF 65-70% with [id number] MR. EKG with no delta wave low-dose from WPW standpoint - Time Spent with Patient Total time spent is greater than 50% in coordination of care (as documented) at patient's floor/unit and/or counseling patient: 25 - 35 minutes Plan of Care Discussed with: patient Internal Medicine: Result - Labs CBC & Chem 7: 09/29/18 22:07 09/30/18 05:38 Labs: Cardiac Enzymes 09/30/18 09/30/18 Range/Units 17:31 22:57 Troponin I < 0.03 < 0.03 (< 0.04) ng/mL - ABG Interpretation ABG results: PT/INR, D-dimer PT 11.8 Seconds (9.4-12.1) 09/29/18 22:07 - Impressions Impressions Brain MRI 09/30/18 00:56 IMPRESSION: 1. No acute intracranial abnormality. No acute infarct. 2. Susceptibility is seen along the sulci of the frontal lobes bilaterally, which may represent sequelae of a prior subarachnoid hemorrhage. 3. Mild global parenchymal volume loss. D/ / Roberto Jackson MD / Roberto Jackson MD Interpreting Provider: Roberto Jackson MD Echocardiogram 09/30/18 00:56 Impressions: LVEF 65-70%. Normal LV chamber size, wall thickness and function. Normal right ventricular structure and function. Mild-moderate mitral regurgitation. Mild tricuspid regurgitation. Mild pulmonic regurgitation. No pulmonary hypertension. Left Ventricular Wall Motion: Rest Echo Findings All wall segments showed normal motion. Findings: Study Quality * Technically adequate exam. ECG Findings * Normal sinus rhythm. Left Ventricle * LVEF 65-70%. * Normal LV chamber size, wall thickness and function. * Normal left ventricular diastolic function. Right Ventricle * Normal right ventricular structure and function. Left Atrium * Normal left atrial size. Right Atrium * Normal right atrial size. Interatrial Septum * Interatrial septum not well evaluated. * No evidence of PFO by color Doppler. Aortic Valve * Trileaflet aortic valve. * No aortic stenosis. * No aortic regurgitation. Mitral Valve * Normal mitral valve structure. * No mitral stenosis. * Mild-moderate mitral regurgitation. Tricuspid Valve * Normal tricuspid valve structure. * No tricuspid stenosis. * Mild tricuspid regurgitation. * Estimated RVSP is 30 mmHg. * Estimated RA pressure is 3 mmHg. * No pulmonary hypertension. Pulmonic Valve * Pulmonic valve is not well visualized. * No pulmonic stenosis. * Mild pulmonic regurgitation. Aorta * Normally sized aortic root. Pericardium * The pericardium appears normal. IVC * Normal IVC dimensions and inspiratory collapse. Consult Discharge Plan - Plan Referrals: Bhanu Moody DO [Primary Care Provider] - (5) COPD (chronic obstructive pulmonary disease) Qualifiers: COPD type: chronic bronchitis Chronic bronchitis type: unspecified Qualified Code(s): J42 - Unspecified chronic bronchitis (6) CAD (coronary artery disease) Qualifiers: Coronary Disease-Associated Artery/Lesion type: [place] artery [place] vs. transplanted heart: [place] heart Associated angina: with unspecified angina Qualified Code(s): I25.119 - Atherosclerotic heart disease of [place] coronary artery with unspecified angina pectoris
--- NOTE | 2018-10-01 15:35 | EEG/EMG/Oth Biometrics Report ---
EEG Procedure Report Date of procedure: 10/01/18 EEG Procedure: Routine EEG Procedure Note: This is a report of a 21 channel bipolar and referential montage EEG. A posterior dominant rhythm of 10 Hz moderate voltage alpha frequencies identified symmetrically in the posterior head regions. His rhythm attenuates symmetrically with eye opening. Superimposed beta frequencies identified in all leads bilaterally intermittently during the recording. There is no sleep architecture identified during the study. Hyperventilation is not performed in recording. Photic stimulations performed and produces a symmetric driving response. The EKG rhythm strip reveals sinus bradycardia at 48 bpm. Impressions: This EEG recording is within normal limits. There is no evidence of epileptiform activity identified during the study. Comment: Sinus bradycardia at 48 bpm's identified. Beta frequencies are indeed recognized as a normal variant. However may also be reflective of a host of metabolic conditions anxiety and medication effect. A normal EEG does not preclude a diagnosis of seizure or epilepsy. If the clinical suspicion for seizure activity is high, serial EEGs or perhaps a prolonged recording may increase the yield. Please correlate clinically.
[2018-10-01 16:07] LABS: Amphetamine Screen,Urine Negative ng/mL (Cutoff=1000); Barbiturate Screen,Urine Negative ng/mL (Cutoff=200); Benzodiazepines Screen,Urine Positive ng/mL (Cutoff=200); Cannabinoid Screen,Urine Positive ng/mL (Cutoff = 50); Cocaine Screen,Urine Negative ng/mL (Cutoff= 300); Opiate Screen,Urine Negative ng/mL (Cutoff=300); Phencyclidine Screen,Urine Negative ng/mL (Cutoff=25)
[2018-10-01] MEDS: traZODone 50 MG TABLET PO SCH (20:34)
[2018-10-02] MEDS: *HR* Heparin 5,000 UNIT/ML VIAL SQ SCH (06:47)
[2018-10-02 07:34] VITALS: BP 103/71
[2018-10-02] MEDS: Budesonide/Formoterol 160/4.5 1 PUFF INH IH SCH (07:56)
[2018-10-02] MEDS: FLUoxetine 20 MG CAPSULE PO SCH (08:06)
[2018-10-02] MEDS: ALPRAZolam 1 MG TABLET PO SCH ×2 (08:06→12:37)
[2018-10-02] MEDS: Gabapentin 300 MG CAPSULE PO SCH (08:06)
[2018-10-02] MEDS: Aspirin 81 MG TAB.CHEW PO SCH (08:06)
--- NOTE | 2018-10-02 10:11 | Event Note ---
Date of Encounter: 10/02/18 Time of Encounter: 10:09 - Cardiology Event Note 24 hr tele reviewed. AVG HR 48, lowest HR 40, SR. No significant pauses in the past 24 hours. No arrhythmias noted. Cardiology signing off. No indication for PPM at this time. Recommend 4 week event monitor to be applied prior to d/c. Will order. Follow-up outpt in 4-6 weeks.
--- NOTE | 2018-10-02 11:10 | Discharge Summary ---
- NOTES TO OUTPATIENT PROVIDER Notes to Outpatient Provider: Follow with PCP in one week- get established with smoking cessation. Follow-up with cardiology in 4-6 week. Continue [place] monitor. Follow-up with neurologist in 1-2 weeks. Seizure precaution-avoid driving or unsupervised swimming /using ladder etc for 3 months Date of Encounter: 10/02/18 Time of Encounter: 11:26 - Discharge Diagnosis (1) New onset seizure Priority: Primary Status: Acute Assessment and Plan: Witnessed by family member. No active seizure in hospital. CT head with no acute process. MRI with no acute finding. EEG report negative for seizure. No definitive underlying etiology identified but possibility Chantix related therefore advised to stop Chantix ,smoking cessation education was given. Will discharge patient on nicotine patch and further follow-up by PCP. Neurologist on board and okay to discharge from neuro standpoint. He advised for seizure precaution like driving, unsupervised swimming and using ladder or reaching to any height for 3 months. Follow-up with neurologist in 1-2 weeks. As this is for seizure therefore no antiepileptic advice at the time of discharge. No records from [facility] has received yet. (2) Bipolar 1 disorder Priority: Secondary Status: Chronic Assessment and Plan: Stable. Continue home medicine (3) Moderate tricuspid regurgitation Priority: Secondary Status: Acute Assessment and Plan: Stable. (4) COPD (chronic obstructive pulmonary disease) Priority: Secondary Status: Chronic Assessment and Plan: Stable. Does not appear in acute exacerbation Qualifiers: COPD type: chronic bronchitis Chronic bronchitis type: unspecified Qualified Code(s): J42 - Unspecified chronic bronchitis (5) CAD (coronary artery disease) Priority: Secondary Status: Chronic Assessment and Plan: Status post PCI at [facility] in November 2016. Continue aspirin and statin. No beta reji due to hypotension and bradycardia Qualifiers: Coronary Disease-Associated Artery/Lesion type: [place] artery [place] vs. transplanted heart: [place] heart Associated angina: with unspecified angina Qualified Code(s): I25.119 - Atherosclerotic heart disease of [place] coronary artery with unspecified angina pectoris (6) Sinus pause Priority: Primary Status: Acute Assessment and Plan: 3 positive noted on telemetry bed where more than 3 seconds. In having the concern for loss of consciousness with syncope versus possible seizure activity, vp transportation advised to discharge patient on event monitor and have her follow- up in his office 4-6 week. Blasting Helper's okay to discharge from cardiology standpoint. A avoid AV chino blockers (7) WPW (Hoqoi-Ltokovvgh-Ltlfq syndrome) Priority: Primary Status: Chronic Assessment and Plan: Chronic. Previously followed at [facility] and declined elevation. Cardiology on board. History of valvular disease on TTE done at [facility] in November 2016 with EF 55% moderate LAD and mild MR. Recent echo EF 65-70% with [id number] MR. EKG with no delta wave low-dose from WPW standpoint (8) Marijuana abuse Priority: Secondary Status: Acute Assessment and Plan: Occasionally. Education given Hospital course: Ms. Cevallos is a 52 year old female patient got admitted for further evaluation of new onset seizure activity. Blasting Helper and neurologist was consulted. Please see details in diagnosis section of discharge summary. No seizure activity during this admission. At the time of discharge patient is clinically hemodynamically stable, tolerating oral diet and ambulating well. Discharge discussed with: patient, nurse, excellence consultant - Time Spent with Patient Total time spent providing and/or coordinating discharge services: Less than 30 minutes - Discharge Medications Home Medications: FLUoxetine HCl [Prozac] 40 mg PO BID 11/22/16 [History] Pravastatin Sodium 20 mg PO DAILY 11/22/16 [History] Aspirin 81 mg PO DAILY tab.chew 11/25/16 [Rx] traZODone [TraZODone] 100 mg PO HS tablet 11/25/16 [Rx] ALPRAZolam [Xanax 1 MG Tablet] 1 mg PO QID 09/30/18 [History] Budesonide/Formoterol 160/4.5 [Symbicort 160/4.5] 2 puff IH BIDR 09/30/18 [History] Gabapentin [Neurontin] 300 mg PO TID 09/30/18 [History] Rizatriptan Benzoate [Maxalt] 10 mg PO DAILY PRN 09/30/18 [History] Nicotine Patch [Nicoderm] 1 each TD DAILY #30 patch.td24 10/02/18 [Rx] Allergies/Adverse Reactions: Allergy/AdvReac Type Severity Reaction Status Date / Time acetaminophen [From Vicodin] Allergy Hives Verified 02/20/18 12:38 codeine Allergy Hives Verified 02/20/18 12:38 hydrocodone [From Vicodin] Allergy Hives Verified 02/20/18 12:38 morphine Allergy Hives Verified 02/20/18 12:38 Date of admission: 09/29/18 18:30 Primary care physician: Bhanu Moody Consults: 09/29/18 21:51 Consult to Physician [CONS] Routine Consulting Provider: Rosi Redd I Reason for Consult: NEW ONSET SIEZURE Time Notified: 21:52 Call Completed: No 09/30/18 18:11 Consult to Cardiology [CONS] Routine Comment: Consulting Provider: [facility] [place] Reason for Consult: WPW syndrome Call Completed: Yes 10/01/18 11:43 Consult to Interpret Exam [CONS] Routine Consulting Provider: Bhanu Barth Consult to Interpret Exam: Interpret EEG - Constitutional Vitals: Temp Pulse Resp BP Pulse Ox 97.6 F 45 17 103/71 97 10/02/18 07:30 10/02/18 07:30 10/02/18 07:56 10/02/18 07:56 10/02/18 07:56 Exam: General appearance: No acute distress, A&O X 3 Eye exam: EOMI, PERRLA ENT exam: Moist oral mucosa Neck nontender, supple Respiratory exam: Clear to auscultation bilaterally Cardiovascular exam: Regular rate and rhythm, no systolic murmur Abdominal exam: Soft, nontender, nondistended, positive bowel sounds Extremities exam: No calf tenderness, no pedal edema Present: Skin-no rash, warm, dry, intact Neurological exam: Alert, awake, oriented 3, CN II-XII intact, no focal deficits. No facial droop. Normal speech. Normal gait. - Patient Status Disposition: Home, Self-Care Condition: Good Overall status at discharge: patient is back to baseline - Discharge Instructions Follow Up With: Bhanu Moody DO [Primary Care Provider] - - Diet and Activity Activity: increase activity as tolerated Diet: advance to your usual diet, low fat, low cholesterol, low salt diet
--- NOTE | 2018-10-03 11:39 | Electrocardiograph Report ---
[place] [id number] Test Date: 2018-09-30 Pat Name: Clemencia Cevallos Department: 111 Room: 2NE18 Gender: F [employer] M[employer] Worker: : 1965 Requested By: Lani Mace Order Number: [id number] Reading MD: Alex Serrano Measurements Intervals Depue Rate: 45 P: 84 GA: 91 QRS: -38 QRSD: 149 T: 68 QT: 525 QTc: 479 Interpretive Statements SINUS BRADYCARDIA WITH SHORT GA INTERVAL VENTRICULAR PREEXCITATION/WPW Electronically Signed On 10-03-2018 11:37:43 EST by Alex Serrano
== END 2018-10-02 13:25 | disposition home or self-care (01) ==
LOC: 2NENU
PROVIDERS: ADMIT Internal Medicine; ATTEND Internal Medicine